=== PATIENT | male | born 1980 | race Caucasian/White ===

== ENCOUNTER 2024-02-07 09:01 | Outpatient (OUT) | payer OTHER, SELFPAY ==
--- NOTE | 2024-02-07 09:09 | ECG_ITS ---
[facility] Test Date: 2024-02-07 Pat Name: TEAGAN ACOSTA Department: Room: - Gender: Male Animal [employer]: : [id number] Requested By: Order Number: [id number] Reading MD: MARYANNE GARCIA Measurements Intervals [place] Rate: 72 P: 73 ID: [id number] QRS: 45 QRSD: 93 T: 47 QT: 371 QTc: 407 Interpretive Statements SINUS RHYTHM No previous ECG available for comparison Electronically Signed On 02-07-2024 23:03:37 EDT by MARYANNE GARCIA
[2024-02-07 09:48] LABS: Basophils Percent Auto 0.7 % (0.2-2.0); Eosinophils Absolute Auto 0.1 10^3/uL (0.0-0.7); Eosinophils Percent Auto 1.9 % (0.9-7.0); Hemoglobin 13.3 g/dL (14.0-18.0); Immature Granulocytes Abs Auto 0.01 10^3/uL (0.00-0.03); Immature Granulocytes Pct Auto 0.2 % (0.0-0.5); Lymphocytes Absolute Auto 1.1 10^3/uL (1.2-3.8); Lymphocytes Percent Auto 25.2 % (20.5-60.0); Mean Corpuscular HGB Conc 33.3 g/dL (29.9-35.2); Mean Corpuscular Volume 87.3 fL (80.0-94.0); Mean Platelet Volume 8.8 fL (9.5-13.5); Monocytes Absolute Auto 0.4 10^3/uL (0.3-0.8); Monocytes Percent Auto 9.6 % (1.7-12.0); Neutrophils Absolute Auto 2.7 10^3/uL (1.4-6.5); Neutrophils Percent Auto 62.4 % (43.0-75.0); Platelet Count 236 10^3/uL (150-450); Red Blood Count 4.58 10^6/uL (4.70-6.10); Red Cell Distribution Width 12.7 % (11.0-15.0); White Blood Count 4.3 10^3/uL (4.0-11.0)
[2024-02-07 10:26] LABS: BUN Creatinine Ratio 20.9; Calcium 8.7 mg/dL (8.5-10.1); Carbon Dioxide 27.1 mmol/L (21.0-32.0); Chloride 107 mmol/L (98-107); Estimated GFR (African America >60 (>=60); Estimated GFR (Non-African Ame >60 (>=60); Glucose 111 mg/dL (74-106); Potassium 4.1 mmol/L (3.5-5.1); Sodium 141 mmol/L (136-145)
[2024-02-07 11:01] LABS: Partial Thromboplastin Time 27.1 sec (22.3-36.2); Prothrombin Time 10.6 sec (9.0-11.6)
== END 2024-02-07 09:02 | disposition home or self-care (01) ==
PROVIDERS: Visit Provider Urology
DX: Z01.810 Encounter for preprocedural cardiovascular examination (principal); Z01.812 Encounter for preprocedural laboratory examination; N43.3 Hydrocele, unspecified
CPT/HCPCS: 80048; 85025; 85610; 85730; 93005

== ENCOUNTER 2024-02-21 11:07 | Day surgery (SDC) | payer OTHER, SELFPAY ==
[2024-02-07 09:14] VITALS: BP 130/80; PULSE 80; TEMP 36.5; O2SAT 97; BMI 47.0
[2024-02-21] VITALS (13 sets, daily range): BP systolic 124–155; BP diastolic 78–101; PULSE 69–85; TEMP 36.2–36.4; O2SAT 94–98; BMI 47.0
--- OUTSIDE RECORDS SUMMARY | 2024-02-21 11:17 | XMS_ITS | CCD ---
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 Mucous membranes moist. Normal oropharynx, posterior pharynx without lesion or exudate. Tongue normal. Neck: No cervical lymphadenopathy Lungs: Decreased breath sounds throughout with mild wheezing Cardio: Regular rate and rhythm with no murmur Mental status: Alert and oriented x3. Appropriate mood and affect. Assessment/Plan 1. Moderate asthma with acute exacerbation (J45.901: Unspecified asthma with (acute) exacerbation) Prescription for azithromycin and prednisone 60 mg daily sent to local pharmacy along with albuterol nebulizer solution and tubing. Encouraged patient to continue to use albuterol inhaler as needed along with Singulair nightly. 2. First degree burn of eyelid (T26.00XA: Burn of unspecified eyelid and periocular area, initial encounter) Discussed with patient to use Vaseline or Aquaphor healing ointment on the area. Can apply cool compresses. 3. Hypertension (I10: Essential (primary) hypertension) This is well controlled. Continue lisinopril 20 mg daily as prescribed. 4. BMI 45.0-49.9, adult (Z68.42: Body mass index [BMI] 45.0-49.9, adult) The standard range for ages 18 and older is >=18.5 and < 25 kg/m2. Your BMI today was above this range, this falls in the overweight to obese category and there are medical benefits to weight loss. We can offer counselling, referral, and/or medical support in addressing this problem. Your BMI and weight management will be followed at subsequent visits. 5. Morbid obesity (E66.01: Morbid (severe) obesity due to excess calories) See problem number 4. Patient verbalized understanding and is agreeable to plan and course of treatment. This documentation was completed by voice-activated device and software. Inaccuracies compared to the original dictation of this provider are possible although this document has been overread and corrected. Portions of this record may have been created with voice recognition artificial intelligence software, specifically [employer] / [employer] and or [employer]. Substitutions may have occurred due to the inherent limitations of voice recognition and artificial intelligence software. ATTESTATION: This note has been generated by [employer] and edited by Jabier Knutson, Quality Staff Midwife. Follow-up (more content not included)... [facility] Comment on above: Result Comment: Elec tronically Signed By: Nayely Souza PA-C\.br\Date and Time Signed: 12/19/23 21:32 EDT\.br\Electronically Co-Signed By: Jabier Knutson\.br\Date and Time Co-Signed: 12/17/23 14:58 EDT Ambulatory Visit Summaryon 0 12-17-2023 Ambulatory Visit Summary TULIO ACOSTA JR :1980 Visit Date:12/17/2023 Ambulatory Visit Instructions Your Diagnosis Moderate asthma with acute exacerbation Hypertension BMI 45.0-49.9, adult Morbid obesity Your Care Team Attending Physician - Nayely Souza PA-C Primary Care Physician - Nayely Souza PA-C This Is Your Medications List [facility] [place] Prescription (Nebulizer Tubing and Mouthpiece Kit) albuterol (albuterol 0.083% Inh Hillary 3 mL) azithromycin (azithromycin 250 mg Tab) predniSONE (predniSONE 20 mg Tab) Contact prescribing physician if questions or concerns albuterol (Albuterol (Eqv-ProAir HFA) 90 mcg/inh inhalation aerosol) lisinopril (lisinopril 20 mg Tab) montelukast (Singulair 10 mg Tab) sildenafil (Viagra 25 mg Tab) Procedures Performed lateral ankle stabilization Liang modification of the Underwood procedure, synovectomy peroneal brevis and longus tendon (09/04/2013), bilateral knee surgeries, rt little finger surgery. Discharge Vitals Temperature (Oral) 36.6 ?C Heart Rate (Peripheral) 87 Respiratory Rate 18 Blood Pressure 130/76 Height 176 cm Height 69 in Weight 147.2 kg Weight 323.84 lb BMI 47.52 What to do next Scheduled Follow-Up Appointments Sunday. 2023 12:00 PM EDT With: ELIESER VERMA, Cayetano Shelby Where: [facility] Patient Educationon 12-17-19 Patient Education Cardiovascular Managing Your Hypertension Hypertension, also called high blood pressure, is when the force of the blood pressing against the james of the arteries is too strong. Arteries are blood vessels that carry blood from your heart throughout your body. Hypertension forces the heart to work harder to pump blood and may cause the arteries to become narrow or stiff. Understanding blood pressure readings A blood pressure reading includes a higher number over a lower number: ? The first, or top, number is called the systolic pressure. It is a measure of the pressure in your arteries as your heart beats. ? The second, or bottom number, is called the diastolic pressure. It is a measure of the pressure in your arteries as the heart relaxes. For most people, a normal blood pressure is below 120/80. Your personal target blood pressure may vary depending on your medical conditions, your age, and other factors. Blood pressure is classified into four stages. Based on your blood pressure reading, your health care provider may use the following stages to determine what type of treatment you need, if any. Systolic pressure and diastolic pressure are measured in a unit called millimeters of mercury (mmHg). Normal ? Systolic pressure: below 120. ? Diastolic pressure: below 80. Elevated ? Systolic pressure: 120?129. ? Diastolic pressure: below 80. Hypertension stage 1 ? Systolic pressure: 130?139. ? Diastolic pressure: 80?89. Hypertension stage 2 ? Systolic pressure: 140 or above. ? Diastolic pressure: 90 or above. How can this condition affect me? Managing your hypertension is very important. Over time, hypertension can damage the arteries and decrease blood flow to parts of the body, including the brain, heart, and kidneys. Having untreated or uncontrolled hypertension can lead to: ? A heart attack. ? A stroke. ? A weakened blood vessel (aneurysm). ? Heart failure. ? Kidney damage. ? Eye damage. ? Memory and concentration problems. ? Vascular dementia. What actions can I take to manage this condition? Hypertension can be managed by making lifestyle changes and possibly by taking medicines. Your health care provider will help you make a plan to bring your blood pressure within a normal range. You may be referred for counseling on a healthy diet and physical activity. Nutrition ? Eat a diet that is high in fiber and potassium, and low in salt (sodium), added sugar, and fat. An example eating plan is called the DASH diet. DASH stands for Dietary Approaches to Stop Hypertension. To eat this way: ? Eat plenty of fresh fruits and vegetables. Try to fill one-half of your plate at each meal with fruits and vegetables. ? Eat whole grains, such as whole-wheat pasta, brown rice, or whole-grain bread. Fill about one-fourth of your plate with whole grains. ? Eat low-fat dairy products. ? Avoid fatty cuts of meat, processed or cured meats, and poultry with skin. Fill about one-fourth of your plate with lean proteins such as fish, chicken without skin, beans, eggs, and tofu. ? Avoid pre-made and processed foods. These tend to be higher in sodium, added sugar, and fat. ? Reduce your daily sodium intake. Many people with hypertension should eat less than 1,500 mg of sodium a day. Lifestyle ? Work with your health care provider to maintain a healthy body weight or to lose weight. Ask what an ideal weight is for you. ? Get at least 30 minutes of exercise that causes your heart to beat faster (aerobic exercise) most days of the week. Activities may include walking, swimming, or biking. ? Include exercise to strengthen your muscles (resistance exercise), such as weight lifting, as part of your weekly exercise routine. Try to do these types of exercises for 30 minutes at least 3 days a week. ? Do not use any products that contain nicotine or tobacco. These products include cigarettes, chewing tobacco, and vaping devices, such as e-cigarettes. If you need help quitting, ask your health care provider. ? Control any long-term (chronic) conditions you have, such as high cholesterol or diabetes. ? Identify your sources of stress and find ways to manage stress. This may include meditation, deep breathing, or making time for fun activities. Alcohol use ? Do not drink alcohol if: ? Your health care provider tells you not to drink. ? You are , may be , or are planning to become . ? If you drink alcohol: ? Limit how much you have to: ? 0?1 drink a day for women. ? 0?2 drinks a day for men. ? Know how much alcohol is in your drink. In the [place] one drink equals one 12 oz bottle of beer (355 mL), one 5 oz glass of wine (148 mL), or one 1? oz glass of hard liquor (44 mL). Medicines Your health care provider may prescribe medicine if lifestyle changes are not enough to get your blood pressure under control and if: ? Your systolic blood pr (more content not included)... Normal [facility] Registrationon 10-10-2023 Registration [id number] #1.00TIFF [facility] Registrationon 10-04-2023 Registration [id number] 2#1.00TIFF [facility] Physician Referralon 024 Physician Referral [id number] 3#1.00TIFF Normal [facility] US Scrotum (Contents)on 08-27 US Scrotum (Contents) Exam Date/Time: 09/04/2023 15:55 EST Reason for Exam: N43.3;Other (please specify) Report IMPRESSION: NEGATIVE TESTICLES. RIGHT EPIDIDYMIS NOT VISUALIZED. LEFT EPIDIDYMAL CYST VERSUS SPERMATOCELE. LARGE BILATERAL HYDROCELES. NEURAL SONOGRAPHY WITH COLOR FLOW AND DOPPLER. CLINICAL HISTORY: N43.3. Findings: The right testicle measures approximately 5.3 cm x 3.6 cm x 4.1 cm. The left testicle measures approximately 5.9 cm x 3.3 cm x 3.1 cm. Testicles normal in size, shape, echogenicity, color flow, Doppler. Right epididymis not visualized. Left epididymis measures 2.6 cm with 1.6 x 1.5 x 1.3 cm area of cystic change. Color-flow without anomaly. The epididymides bilaterally are unremarkable and measure on the right and 2.6 cm on the left. Large bilateral hydroceles. Report Ordering Provider: Jasmin MCKEON FINAL REPORT Dictated: 09/05/2023 3:56 pm Alonso Fry MD Signed (Electronic Signature): 09/05/2023 3:56 pm Signed by: Alonso Fry MD Transcribed by: FABIOLA Technologist: TONIA [facility] Consent for Treatmenton Consent for Treatment [id number] #1.00TIFF [facility] Family Medicine Office/Clini c Noteon 09-03-2023 Family Medicine Office/Clinic Note Chief Complaint EF pt. pt presents today with c/o rt testicular swelling x 6mo, denies pain, urinary sx's or fevers, declines all vaccs History of Present Illness The patient presents with complaints of right testicular swelling. He is accompanied by his . He has been having discomfort in the right testicle for 6 months. It does not hurt, but it is swollen. He smashed his right testicle when he was a child. Over the years this has always been larger. He is passing urine normally. He does not get up 3 to 4 times at night to urinate. He denies seeing blood in the urine. His erectile function is okay. He has used medication to help with his erectile function, which does help. He denies constipation. 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 He does not unload or lift heavy objects daily or excessively. States that it feels like he almost has 3 testicles all the time. No urethral discharge. He does remain compliant with his CPAP/BiPAP. Tolerates this well. He has a cat bite./Scratches on the right hand. He can not have a tetanus vaccine because it gives him swelling, turns black, and goes into convulsions. Review of Systems PHQ Score Initial Depression Screen Score: 0 SCORE Physical Exam Vitals & Measurements HR: 80(Peripheral) RR: 16 BP: 120/80 SpO2: 97% HT: 69 in HT: 176 cm WT: 146.4 kg WT: 322.08 lb BMI: 47.26 The patient is adequately reasonably hydrated. Accompanied by his . Normocephalic, atraumatic. Without JVD, bruits, no thyromegaly. Neck is very thick. Wearing corrective lenses. Conjunctiva clear. Pupils are symmetric. Auscultation of the lungs clear bilaterally. Heart, regular rate and rhythm. Distant. No murmur, gallop, or rub. Abdomen is morbidly obese. Hyperactive bowel sounds, nontender. Exam of the genitalia find normal circumcised phallus. The left hemiscrotum has a palpable testicle with probably some extra fluid or fullness. The right hemiscrotum is exceptionally large with a palpable testicle on the bottom, but light transilluminates throughout the fluid filled sac. It is not tender. Negative Valsalva exam. No hernias. No inguinal adenopathy. Lower extremities without edema. Warm and dry but pale. Anxious but cooperative. Fair insight. Assessment/Plan 1. Right hydrocele (N43.3: Hydrocele, unspecified) Reviewed that this appears to be a benign condition but with the huge size of the scrotum greater than 8 to 9 cm in diameter I think it would be a arthur idea to get an ultrasound to rule out any other testicular masses it is hard to see or confirm. He is agreeable results will follow reassurance is provided. Ordered: US Scrotum (Contents) 2. Swelling of the testicles (N50.89: Other specified disorders of the male genital organs) Discussed the potential need for urology consult depending on findings of ultrasound. May give consideration to surgical intervention versus watchful waiting. Ordered: US Scrotum (Contents) 3. Erectile dysfunction (N52.9: Male erectile dysfunction, unspecified) May continue with Viagra as needed 4. Hypertension (I10: Essential (primary) hypertension) The importance of the following were all reviewed with the patient: -Take Rx(s )as prescribed. There are simple Lifestyle Modifications that you can do to reduce your blood pressure. -Weight Reduction -Follow the DASH eating plan. More information about this eating plan can be found here: https://www.nhlbi.ni h.gov/health/health- topics/topics/dash -Reduce Sodium (Salt) Intake to 2000mg per day. -Use Moderation when consuming alcohol. - To improve your health we recommend increasing your level of moderate exercise to at least 2.5 hrs per week. For more information, please visit the CDC Exercise and Fitness Recommendations at www.cdc.gov/physical activity/basics/inde x.htm 5. Severe obstructive sleep apnea (G47.33: Obstructive sleep apnea (adult) (pediatric)) Patient is very compliant with CPAP and definitely benefiting from continued use 6. BiPAP (biphasic positive airway pressure) dependence (Z99.89: Dependence on other enabling machines and devices) See problem #5 7. Morbid obesity (E66.01: Morbid (severe) obesity due to excess calories) The standard range for ages 18 and older is >=18.5 and < 25 kg/m2. Your BMI today was above this range, this falls in the overweight to obese category and there are medical benefits to weight loss. We can offer counselling, referral, and/or medical support in addressing this problem. Your BMI and weight management will be followed at subsequent visits. 8. BMI 45.0-49.9, adult (Z68.42: Body mass index [BMI] 45.0-49.9, adult) See #7 Portions of this record may have been created with voice recognition artificial intelligence software, specifically [employer] / [employer] and or [employer]. Substitutions may have occurred due to the inherent limitations of voice recognition and artificial intelligence software. Follow-up With Whe (more content not included)... Normal [facility] Comment on above: Result Comment: Elec tronically Signed By: MIKE VERMA, Jasmin\.br\Date and Time Signed: 09/03/23 13:52 EST Patient Educationon 09-03-19 Patient Education Urology Hydrocele, Adult A hydrocele is a collection of fluid in the loose pouch of skin that holds the testicles (scrotum). It can occur in one or both testicles. This may happen because: ? The amount of fluid produced in the scrotum is not absorbed by the rest of the body. ? Fluid from the abdomen fills the scrotum. Normally, the testicles develop in the abdomen and then drop into the scrotum before . The tube that the testicles travel through usually closes after the testicles drop. If the tube does not close, fluid from the abdomen can fill the scrotum. This is not very common in adults. What are the causes? A hydrocele may be caused by: ? An injury to the scrotum. ? An infection. ? Decreased blood flow to the scrotum. ? Twisting of a testicle (testicular torsion). ? A defect. ? A tumor or cancer of the testicle. Sometimes, the cause is not known. What are the signs or symptoms? A hydrocele feels like a water-filled balloon. It may also feel heavy. Other symptoms include: ? Swelling of the scrotum. The swelling may decrease when you lie down. You may also notice more swelling at night than in the morning. This is called a communicating hydrocele, in which the fluid in the scrotum goes back into the abdominal cavity when the position of the scrotum changes. ? Swelling of the groin. ? Mild discomfort in the scrotum. ? Pain. This can develop if the hydrocele was caused by infection or twisting. The larger the hydrocele, the more likely you are to have pain. Swelling may also cause pain. How is this diagnosed? This condition may be diagnosed based on a physical exam and your medical history. You may also have tests, including: ? Imaging tests, such as an ultrasound. ? A transillumination test. This test takes place in a dark room where a light is placed on the skin of the scrotum. Clear liquid will not impede the light and the scrotum will be illuminated. This helps a health care provider distinguish a hydrocele from a tumor. ? Blood or urine tests. How is this treated? Most hydroceles go away on their own. If you have no discomfort or pain, your health care provider may suggest close monitoring of your condition until the condition goes away or symptoms develop. This is called watch and wait or watchful waiting. If treatment is needed, it may include: ? Treating an underlying condition. This may include taking an antibiotic medicine to treat an infection. ? Having surgery to stop fluid from collecting in the scrotum. ? Having surgery to drain the fluid. Surgery may include: ? Hydrocelectomy. For this procedure, an incision is made in the scrotum to remove the fluid. ? Needle aspiration. A needle is used to drain fluid. However, the fluid buildup will come back quickly and may lead to an infection of the scrotum. This is rarely done. Follow these instructions at home: Medicines ? Take tzjw-qtn-bkwkqvw and prescription medicines only as told by your health care provider. ? If you were prescribed an antibiotic medicine, take it as told by your health care provider. Do not stop taking the antibiotic even if you start to feel better. General instructions ? Watch the hydrocele for any changes. ? Keep all follow-up visits. This is important. Contact a health care provider if: ? You notice any changes in the hydrocele. ? The swelling in your scrotum or groin gets worse. ? The hydrocele becomes red, firm, painful, or tender to the touch. ? You have a fever. Get help right away if you: ? Develop a lot of pain or your pain becomes worse. ? Have chills. ? Have a high fever. Summary ? A hydrocele is a collection of fluid in the loose pouch of skin that holds the testicles (scrotum). ? A hydrocele can cause swelling, discomfort, and pain. ? In adults, the cause of a hydrocele may not be known. However, it is sometimes caused by an infection or the twisting of a testicle. ? Hydroceles often go away on their own. If a hydrocele causes pain, treating the underlying cause may be needed to ease the pain. This information is not intended to replace advice given to you by your health care provider. Make sure you discuss any questions you have with your health care provider. Document Revised: 03/30/2022 Document Reviewed: 03/30/2022 [employer] Patient Education ? 2022 [employer]. Scrotal Swelling Scrotal swelling is a condition in which the sac of skin that contains the testicles, blood vessels, and structures that help deliver sperm and semen (scrotum) is enlarged or swollen. This can happen on one or both sides of the scrotum. Many things can cause the scrotum to enlarge or swell, including: ? Fluid around the testicle (hydrocele). ? A weakened area in the muscles around the groin (hernia). ? An enlarged vein around the testicle. ? An injury. ? An infection. ? Certain medical treatments. ? Certain medical conditions, (more content not included)... Normal [facility] ABO/Rhon 08-15-2023 ABO/Rh Positive Invalid Interpretation Code [facility] Comment on above: Performed By: #### 1 [id number] ####[facility] [id number] [place] [address] ABO/Rh History Checkon 08-15 ABO/Rh History Check Patient discharged prior Normal [facility] Comment on above: Performed By: #### 1 [id number] ####[facility] [id number] [place] [address] ABSCon 08-15-2023 ABSC Gel Interp Negative Normal [facility] Comment on above: Performed By: #### 1 [id number], [id number], [id number] ####[facility] [id number] [place] [address] Auto Diffon 08-15-2023 Basophils/100 WBC (Bld) 1.2 % Normal 0.0-2.0 [facility] Comment on above: Order Comment: Order Added by Discern Expert. Performed By: #### 2 [id number], [id number], [id number], [id number], [id number], [id number] #### [facility] [address] [place] [address] Basophils/Leukocytes Auto (Bld) [Pure # fraction] 0.1 E9/L Normal 0.0-0.2 [facility] Comment on above: Order Comment: Order Added by Discern Expert. Performed By: #### 2 [id number], [id number], [id number], [id number], [id number], [id number], [id number] #### [facility] [address] [place] [address] Eosinophils/100 WBC (Bld) 2.9 % Normal 0.0-8.0 [facility] Comment on above: Order Comment: Order Added by Discern Expert. Performed By: #### 2 [id number], [id number], [id number], [id number], 8508535, [id number], [id number], [id number] #### [facility] [address] [place] [address] Eosinophils/Leukocyte s Auto (Bld) [Pure # fraction] 0.1 E9/L Normal 0.0-0.5 [facility] Comment on above: Order Comment: Order Added by Discern Expert. Performed By: #### 2 [id number], [id number], [id number], 6979093, [id number], [id number], [id number], [id number], [id number] #### [facility] [address] [place] [address] Lymphocytes/100 WBC (Bld) 26.5 % Normal 14.0-50.0 [facility] Comment on above: Order Comment: Order Added by Discern Expert. Performed By: #### 2 [id number], [id number], [id number], [id number], 5797548, 8943450, 1662519, [id number], [id number] #### [facility] [address] [place] [address] Lymphocytes/Leukocyte s Auto (Bld) [Pure # fraction] 1.2 E9/L Normal 1.0-4.0 [facility] Comment on above: Order Comment: Order Added by Discern Expert. Performed By: #### 2 [id number], [id number], 1549125, 4794310, 3904023, 9398421, 4434577, [id number], [id number] #### [facility] [address] [place] [address] Monocytes/100 WBC (Bld) 10.5 % Normal 4.0-14.0 [facility] Comment on above: Order Comment: Order Added by Discern Expert. Performed By: #### 2 117265, [id number], 8340317, 0649875, 4700485, 6372612, 5566686, 33257652, 8253099 #### [facility] [address] [place] [address] Monocytes/Leukocytes Auto (Bld) [Pure # fraction] 0.5 E9/L Normal 0.2-1.0 [facility] Comment on above: Order Comment: Order Added by Discern Expert. Performed By: #### 2 597791, 62910726, 6650222, 4428636, 6775318, 4951027, 8499711, 91488246, 4677072 #### [facility] [address] [place] [address] Neutrophils/100 WBC (Bld) 58.9 % Normal 36.0-75.0 [facility] Comment on above: Order Comment: Order Added by Discern Expert. Performed By: #### 2 331304, 88418770, 1004976, 1317424, 3178030, 1210246, 9501925, 57868046, 4633546 #### [facility] [address] [place] [address] Neutrophils/Leukocyte s Auto (Bld) [Pure # fraction] 2.7 E9/L Normal 2.0-7.5 [facility] Comment on above: Order Comment: Order Added by Discern Expert. Performed By: #### 2 839342, 53352584, 4796322, 5591027, 7070484, 7902420, 8106000, 26388313, 7375963 #### [facility] [address] [place] [address] BLOOD BANKOrdered By: Susie Medina on 08-15-2023 ABO/Rh Interp Positive Invalid Interpretation Code [facility] BB Subsection ABSC Gel Interp Negative (08/15/23 9:20 AM) Normal [facility] BB Subsection BMPon 08-15-2023 Anion gap [Moles/Vol] 11 mmol/L Normal 6-16 [facility] Comment on above: Performed By: #### 2 289953, 52402148, 7591335, 2154133, 4887662, 9578852, 2806241, 80661710, 7638302 ####[facility] [address]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 your experience with us by completing your survey. We appreciate your feedback and thank you for choosing us for your care. Normal [facility] CBC w/Indiceson 07-13-2023 Erythrocyte distribution width (RBC) [Ratio] 13.3 % Normal 10.9-14.2 [facility] Comment on above: Performed By: #### 1 [id number], 7422460, 3671288, 20628595, 4386574 ####[facility] [address] [place] [address] Hematocrit (Bld) [Volume fraction] 38.6 % Normal 37.7-49.0 [facility] Comment on above: Performed By: #### 1 5664916, 9522136, 4025266, 54745098, 8415985 ####[facility] [address] [place] [address] Hemoglobin (Bld) [Mass/Vol] 13.3 g/dL Low 13.5-17.5 [facility] Comment on above: Performed By: #### 1 [id number], 0834139, 3933407, 33196443, 8496610 ####[facility] [address] [place] [address] MCH (RBC) [Entitic mass] 29.6 pg Normal 27.0-34.0 [facility] Comment on above: Performed By: #### 1 9931502, 5226856, 4819930, 56209293, 8519045 ####[address] [place] [address] MCHC (RBC) [Mass/Vol] 34.4 g/dL Normal 31.4-36.0 [facility] Comment on above: Performed By: #### 1 9399146, 0966063, 2727857, 21301525, 3812586 ####[address] [address] MCV (RBC) [Entitic vol] 86.0 fL Normal 80.0-100.0 [facility] Comment on above: Performed By: #### 1 2051685, 8122772, 4126312, 99496243, 6731712 ####[address] [address] Platelet mean volume (Bld) [Entitic vol] 6.4 fL Normal 6.4-10.8 [facility] Comment on above: Performed By: #### 1 5573359, 1122298, 9890568, 47007428, 5259400 ####[address] [address] Platelets (Bld) [#/Vol] 260.0 E9/L Normal 150.0-500.0 [facility] Comment on above: Performed By: #### 1 6490834, 3859751, 0103992, 93256948, 2929828 ####[address] [address] RBC (Bld) [#/Vol] 4.5 E12/L Normal 4.3-5.9 [facility] Comment on above: Performed By: #### 1 6963789, 2869351, 3316153, 73571812, 2626048 ####[address] [address] WBC corrected for nucl RBC Auto (Bld) [#/Vol] 5.0 E9/L Normal 4.0-11.0 [facility] Comment on above: Performed By: #### 1 8695798, 2103324, 5245161, 58277919, 5462707 ####[facility] [address] [place] [address] CHEMISTRYOrdered By: SYSTEM SYSTEM on 07-13-2023 Albumin [Mass/Vol] 3.9 g/dL Normal 3.3 - 5.0 gm/dL [facility] Albumin/Globulin [Mass ratio] 1.2 {ratio} Normal 1.1 - 2.2 [facility] ALP [Catalytic activity/Vol] 56 [iU]/d Normal 21 - 98 Int._Unit/L [facility] ALT No additional P-5'-P [Catalytic activity/Vol] 21 [iU]/d Normal 6 - 46 Int._Unit/L [facility] Anion gap [Moles/Vol] 13 mmol/L Normal 6 - 16 mEq/L [facility] AST [Catalytic activity/Vol] 17 [iU]/d Normal 5 - 43 Int._Unit/L [facility] Bilirubin [Mass/Vol] 1.6 mg/dL High 0.0 - 1 .1 mg/dL [facility] Calcium [Mass/Vol] 9.1 mg/dL Normal 8.9 - 11. 1 mg/dL [facility] Chloride [Moles/Vol] 103 mmol/L Normal 101 - 1 11 mmol/L [facility] CO2 [Moles/Vol] 26 mmol/L Normal 21 - 31 mmol/L [facility] Creatinine [Mass/Vol] 0.9 mg/dL Normal 0.5 - 1.3 mg/dL [facility] CRP [Mass/Vol] 1.4 mg/dL Normal <=1.9mg/dL [facility] ol GFR/1.73 sq M.predicted among non-blacks MDRD (S/P/Bld) [Vol rate/Area] 109 mL/min/1.73 m2 Normal >=59mL/min/1 .73 m2 [facility] Comment on above: Interpretive Data: C hronic kidney disease could be indicated at eGFR's of less than 60 mL/min/1.73m2. Kidney failure is indicated at less than 15 mL/min/1.73m2. Globulin (S) [Mass/Vol] 3.2 g/dL Normal 1.4 - 4.0 gm/dL [facility] Remisol Glucose [Mass/Vol] 89 mg/dL Normal 55 - 199 mg/dL [facility] Comment on above: Interpretive Data: I f this glucose result represents a fasting glucose, interpretation should refer to the following reference range: 55-99 mg/dL Potassium [Moles/Vol] 4.1 mmol/L Normal 3.5 - 5.3 mmol/L [facility] Remisol Protein [Mass/Vol] 7.1 g/dL Normal 6.0 - 7.8 gm/dL [facility]isol Sodium [Moles/Vol] 138 mmol/L Normal 135 - 145 mmol/L [facility]isol Urea nitrogen [Mass/Vol] 18 mg/dL Normal 5 - 21 mg/dL [facility] Remisol Urea nitrogen/Creatinine [Mass ratio] 20 mg/mg Normal 10 - 20 [facility] Remisol CMPon 07-13-2023 Albumin [Mass/Vol] 3.9 g/dL Normal 3.3-5.0 [facility] Comment on above: Performed By: #### 1 [id number], 7998041, 2242589, 27113226, 3852461 ####[facility] [address] [place] [address] Albumin/Globulin (S) [Mass conc ratio] 1.2 Normal 1.1-2.2 [facility] Comment on above: Performed By: #### 1 7376627, 3631546, 6675299, 88911592, 0467316 ####[facility] [address] [place] [address] ALP [Catalytic activity/Vol] 56 Int._Unit/L Normal 21-98 [facility] Comment on above: Performed By: #### 1 4543275, 0074781, 6230120, 54543867, 6879729 ####[facility] [address] [place] [address] ALT No additional P-5'-P [Catalytic activity/Vol] 21 Int._Unit/L Normal 6-46 [facility] Comment on above: Performed By: #### 1 1774451, 8996923, 0943415, 74434560, 8991853 ####[facility] [address] [place] [address] Anion gap [Moles/Vol] 13 mmol/L Normal 6-16 [facility] Comment on above: Performed By: #### 1 9013520, 1935278, 1423031, 53716644, 8232957 ####[facility] [address] [place] [address] AST [Catalytic activity/Vol] 17 Int._Unit/L Normal 5-43 [facility] Comment on above: Performed By: #### 1 1582239, 4884446, 4321831, 86567096, 6789056 ####[address] [place] [address] Bilirubin [Mass/Vol] 1.6 mg/dL High 0.0-1.1 [facility] Comment on above: Performed By: #### 1 9067383, 8937459, 7511154, 63316834, 9082078 ####[facility] [address] [place] [address] Calcium [Mass/Vol] 9.1 mg/dL Normal 8.9-11.1 [facility] Comment on above: Performed By: #### 1 9583421, 1322622, 6508990, 85367655, 3548599 ####[address] [place] [address] Chloride [Moles/Vol] 103 mmol/L Normal 101-111 [facility] Comment on above: Performed By: #### 1 6221065, 0532259, 6694557, 26148098, 4307433 ####[facility] [address] [place] [address] CO2 [Moles/Vol] 26 mmol/L Normal 21-31 [facility] Comment on above: Performed By: #### 1 3143883, 5237506, 5152345, 85855226, 6178299 ####[facility] [address] [place] [address] Creatinine [Mass/Vol] 0.9 mg/dL Normal 0.5-1.3 [facility] Comment on above: Performed By: #### 1 7936718, 3369632, 8718638, 23104637, 4151318 ####[facility] [address] [place] [address] Globulin (S) [Mass/Vol] 3.2 g/dL Normal 1.4-4.0 [facility] Comment on above: Performed By: #### 1 1342197, 7873338, 1519218, 31728732, 8851378 ####[facility] [address] [place] [address] Glucose [Mass/Vol] 89 mg/dL Normal 55-199 [facility] Comment on above: Result Comment: If t his glucose result represents a fasting glucose, interpretation should refer to the following reference range: 55-99 mg/dL Performed By: #### 1 0941301, 9043907, 9149513, 54407767, 2233402 ####[facility] [address] [place] [address] Potassium [Moles/Vol] 4.1 mmol/L Normal 3.5-5.3 [facility] Comment on above: Performed By: #### 1 5144517, 9044379, 0049623, 18540686, 8543758 ####[facility] [address] [place] [address] Protein [Mass/Vol] 7.1 g/dL Normal 6.0-7.8 [facility] Comment on above: Performed By: #### 1 8304686, 3528243, 4665701, 92975711, 2675338 ####[facility] [address] [place] [address] Sodium [Moles/Vol] 138 mmol/L Normal 135-145 [facility] Comment on above: Performed By: #### 1 4751501, 5990860, 7023307, 21283732, 2458087 ####[facility] [address] [place] [address] Urea nitrogen [Mass/Vol] 18 mg/dL Normal 5-21 [facility] Comment on above: Performed By: #### 1 2103184, 8658762, 1743683, 89343216, 6832546 ####[facility] [address] [place] [address] Urea nitrogen/Creatinine [Mass ratio] 20 No Units Normal 10-20 [facility] Comment on above: Performed By: #### 1 2996816, 8685780, 7081949, 39775991, 1384364 ####[facility] [address] [place] [address] CRPon 07-13-2023 CRP [Mass/Vol] 1.4 mg/dL Normal <=1.9 [facility] Comment on above: Performed By: #### 1 4227630, 0446311, 9217324, 64975102, 6915855 ####[facility] [address] [place] [address] Consent for Treatmenton 06-27 Consent for Treatment [id number] #1.00TIFF Normal [facility] HEMATOLOGYOrdered By: Aviva Hathaway on 07-13-2023 Erythrocyte distribution width (RBC) [Ratio] 13.3 % Normal 10.9 - 14.2 % FT [facility] ESR (Bld) [Velocity] 11 mm/h Normal 0 - 19 mm/hr [facility] Hematocrit (Bld) [Volume fraction] 38.6 % Normal 37.7 - 49.0 % FT [facility] Hemoglobin (Bld) [Mass/Vol] 13.3 g/dL Low 13.5 - 17.5 gm/dL [facility] MCH (RBC) [Entitic mass] 29.6 pg Normal 27.0 - 34.0 pg FT [facility] MCHC (RBC) [Mass/Vol] 34.4 g/dL Normal 31.4 - 36.0 gm/dL [facility] MCV (RBC) [Entitic vol] 86.0 fL Normal 80.0 - 100.0 fL [facility] HemeAutoSS Platelet mean volume (Bld) [Entitic vol] 6.4 fL Normal 6.4 - 10.8 fL [facility] HemeAutoSS Platelets (Bld) [#/Vol] 260.0 E9/L Normal 150.0 - 500.0 E9/L [facility] HemeAutoSS RBC (Bld) [#/Vol] 4.5 E12/L Normal 4.3 - 5.9 E12/L [facility] HemeAutoSS WBC corrected for nucl RBC Auto (Bld) [#/Vol] 5.0 E9/L Normal 4.0 - 11.0 E9/L [facility] HemeAutoSS Provider Letteron 07-13-2023 Provider Letter July 13, 2023 TULIO DAVE [address] [place] [address] : 1980 To Whom It May Concern, Please excuse above patient from work. Date of Illness: From: 07/13/2023 To: 07/13/2023 May Return to Work On: 07/14/2023 Restrictions: _ Comments: Please also excuse patient from work on 07/09/2023 Sincerely, Lorenzo Pulido MD [facility] Normal [facility] Sed Rate Automatedon 023 ESR (Bld) [Velocity] 11 mm/h Normal 0-19 [facility] Comment on above: Performed By: #### 1 [id number], 1778208, 5646782, 85217463, 6487207 ####[facility] [address] [place] [address] eGFRon 07-13-2023 GFR/1.73 sq M.predicted among non-blacks MDRD (S/P/Bld) [Vol rate/Area] 109 mL/min/1.73 m2 Normal >=59 [facility] Comment on above: Order Comment: Order added by Discern Expert. Result Comment: Manager Commission colleen kidney disease could be indicated at eGFR's of less than 60 mL/min/1.73m2. Kidney failure is indicated at less than 15 mL/min/1.73m2. Performed By: #### 1 9039827, 0542531, 3436307, 10483922, 3790094 ####[facility] [address] [place] [address] Consenton 06-20-2023 Consent [id number] 0#1.00TIFF Normal [facility] Workers' Comp Officeon 06-20 Workers' Comp Office [id number] 6#1.00TIFF Normal [facility] Workers' Comp Office [id number] 5#1.00TIFF Normal [facility] Workers' Comp Office Patient: TULIO ACOSTA JR Age: 42 years Sex: Male : 1980 Associated Diagnoses: None Author: Gena PIMENTEL CNP Chief Complaint 06/20/2023 8:34 EDT pt was hit in the head with an outrigger pad for a roman, treated at Urgent Care in [place] and 9 eliazar to top R side of his head, no signs of infection, no c/o History of Present Illness DOI: 06/06/23 Employer: [employer]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 He went to Urgent Care and required 9 eliazar to his right upper forehead. Denies any loss of consciousness. States he was off work 2 days then returned to work full duty. 06/20/23 f/u Presents today for staple removal. Denies any problems with laceration. Denies any pain of laceration. Denies any headaches. States he never required any OTC pain relievers. Review of Systems Constitutional: Negative. Musculoskeletal: Negative. Integumentary: scalp laceration. Neurologic: Negative. Psychiatric: Negative. Health Status Allergies: Allergic Reactions (Selected) Severe Tetanus toxoid- Apnea and swelling. Moderate Symbicort- Throat irritation., Allergies (2) Active Reaction tetanus toxoid Apnea Symbicort Throat irritation Current medications: (Selected) Prescriptions Prescribed Albuterol (Eqv-ProAir HFA) 90 mcg/inh inhalation aerosol: 2 puff(s), Inhalation, q6hr, 1 EA, [id number], cm, 02/26/23 15:01:00 EDT, Height/Length Dosing, 143.7, kg, 02/26/23 15:01:00 EDT, Weight Dosing Nebulizer Tubing and Mouthpiece Kit: Nebulizer Tubing and Mouthpiece Kit, See Instructions, 1 kit(s), 0, Nebulizer Tubing and Mouthpiece Kit, [facility], Supply, 175, cm, 11/07/21 7:11:00 EDT, Height/Length Dosing, 148, kg, 11/07/21 7:11:00 EDT, Weight Dosing Singulair 10 mg Tab: 10 mg = 1 tab(s), Oral, qPM, # 90 tab(s), Refills(s) 1, [id number], 176, cm, 02/26/23 15:01:00 EDT, Height/Length Dosing, 143.7, kg, 02/26/23 15:01:00 EDT, Weight Dosing Viagra 25 mg Tab: 25 mg = 1 tab(s), Oral, Daily, PRN for erectile dysfunction, # 6 tab(s), Refills(s) 0, Pharmacy: [facility], 175, cm, 10/25/21 7:04:00 EST, Height/Length Dosing, 147.4, kg, 10/25/21 7:04:00 EST, Weight Dosing lisinopril 20 mg Tab: 20 mg = 1 tab(s), Oral, Daily, # 90 tab(s), Refills(s) 1, [id number], 176, cm, 02/26/23 15:01:00 EDT, Height/Length Dosing, 143.7, kg, 02/26/23 15:01:00 EDT, Weight Dosing, Home Medications (5) Active Albuterol (Eqv-ProAir HFA) 90 mcg/inh inhalation aerosol 2 puff(s), Inhalation, q6hr lisinopril 20 mg Tab 20 mg = 1 tab(s), Oral, Daily Nebulizer Tubing and Mouthpiece Kit See Instructions Singulair 10 mg Tab 10 mg = 1 tab(s), Oral, qPM Viagra 25 mg Tab 25 mg = 1 tab(s), PRN, Oral, Daily Problem list: Active Problems (13) Ankle instability BiPAP (biphasic positive airway pressure) dependence BMI 45.0-49.9, adult epislepsy Erectile dysfunction Family history of diabetes mellitus Hypertension Moderate asthma with acute exacerbation Morbid obesity Obesity Personal history of COVID-19 Severe obstructive sleep apnea Umbilical hernia Histories Past Medical History: Active epislepsy Ankle instability (4846633) Comments: 08/29/2013 EST 16:46 LATRICE Edward RN, Yamel left Resolved hypokalemia: Resolved. chronic edema to feet: Resolved. Procedure history: lateral ankle stabilization Liang modification of the Underwood procedure, synovectomy peroneal brevis and longus tendon on 09/04/2013 at 33 Years. Comments: 09/05/2013 18:06 LATRICE Centeno RN, Melia Barht application of below-knee posterior splint bilateral knee surgeries. rt little finger surgery. Physical Examination Vital Signs (last 24 hrs) Last Charted Heart Rate Apical 80 bpm (JUN 20 08:34) SBP 138 mmHg (JUN 20 08:34) DBP 84 mmHg (JUN 20 08:34) General: Alert and oriented, No acute distress. Integumentary: Scalp laceration to right upper forehead edges well approximated, no scabbing, clean and dry. There are no s/s of infection. There was some difficulty removing the 9 eliazar, pt tolerated procedure well. Skin was cleansed with betadine, applied antibiotic ointment and covered with large bandaid. . Neurologic: Alert, Oriented. Psychiatric: Cooperative, Appropriate mood & affect. Impression and Plan Diagnosis Laceration without foreign body of scalp, initial encounter ([id number] S01.01XA, Working, Medical). Course: Improving. Orders Total time: 25 minutes This includes time spent with the patient during the visit as well as time spent before and after the visit reviewing the chart, documenting the encounter, making phone calls, reviewing studies. . Professional Services 1. Reviewed records 2. [place] removed - 3. Instructed in s/s infection and to report same to (more content not included)... Normal [facility] Patient Eval Forms Officeon 04-26-2023 Patient Eval Forms Office [id number] 2#1.00CD:127 [facility] Prescriptions/Work Noteson 0 04-26-2023 Prescriptions/Work Notes [id number] 4#1.00CD:127 [facility] Consent for Treatmenton 03-29 Consent for Treatment [id number] #1.00CD:127 [facility] Consenton 04-23-2023 Consent [id number] 2#1.00CD:127 [facility] In office Testingon 04-23-20 23 In office Testing [id number] #1.00CD:127 [facility] Registrationon 04-23-2023 Registration [id number] 4#1.00CD:127 [facility] Family Medicine Office/Clini c Noteon 03-07-2023 Family Medicine Office/Clinic Note Chief Complaint Check BP and med and discuss CPAP machine History of Present Illness 42-year-old male who presents to the office with his and young child. Previously used to see Alyse Roblero CNP here in office, but she is no longer working here. The patient has concerns regarding his blood pressure check, medication refill as well as wants to discuss his BiPAP machine for his obstructive sleep apnea. The patient is requesting refills for their lisinopril medication, which he takes regularly. He does not check his blood pressure but is currently out of his medication supply. In addition to lisinopril, he takes Singulair for allergies and deny using it in combination with other xigr-vdy-plswqvq medications like Claritin or Zyrtec. He does not need a refill for Viagra at this time for his ED. He uses the Symbicort inhaler as needed and noticed that his BiPAP machine does not feel as strong as it used to. He experiences tiredness and has had difficulties with sleep since his original sleep study, which was conducted almost 2 years ago. He attempted to contact the place where they obtained the machine but were informed that they needed a new prescription from their doctor to submit to the insurance for a replacement. The patient had their original sleep study done in [place]. Since the beginning of January, his sleep duration has decreased from an average of seven to eight hours to about six hours. He is not receiving any readings from his machine, and despite the device indicating that his sleep quality is good, the patient feels that it is not working properly, and he is having difficulty getting up in the morning due to difficulty sleeping. Patient has no other questions or concerns at this time. Review of Systems PHQ Score Initial Depression Screen Score: 0 Negative unless stated in HPI. Physical Exam Vitals & Measurements HR: 71(Peripheral) BP: 128/80 SpO2: 96% HT: 69 in HT: 176 cm WT: 143.7 kg WT: 316.14 lb BMI: 46.39 General: morbidly obese male, well hydrated in no acute distress Eyes: EOMI, conjunctiva and sclera are clear Ears: No deformity or lesion of external ear. Canals canals clear with no erythema or edema. TMs pearly blanchard with no sign of perforation bilaterally. Hearing grossly normal and conversational to speech Nose: no deformity, discharge, inflammation or lesions Mouth: Mucous membranes moist with non-erythematous or edematous oropharynx and posterior pharynx. Tongue normal and free of lesions. Neck: supple, trachea is midline with no masses or lymphadenopathy. Thyroid is without nodules or tenderness Lungs: Normal respiratory effort and clear to auscultation Cardio: regular rate and rhythm, no murmur or rub Musculoskeletal: No deformity or scoliosis noted. Normal range of motion. Joints normal. No erythema, edema, effusion, or ecchymosis Extremity: No clubbing, cyanosis, edema, or deformity, with normal ROM in both upper and lower bilateral extremities Neurologic: Grossly normal Skin: No rashes, ulcerations, or suspicious lesions on exposed skin Mental Status: Alert and oriented x3. Normal mood and affect Assessment/Plan 1. Hypertension (I10: Essential (primary) hypertension) Continue lisinopril 20 mg daily. Refill sent to patient for 90-day supply with one refill to local pharmacy. The importance of the following were all reviewed with the patient: -Take medications as prescribed. There are simple Lifestyle Modifications that you can do to reduce your blood pressure. -Weight Reduction -Follow the DASH eating plan. More information about this eating plan can be found here: https://www.nhlbi. h.gov/health/health- topics/topics/dash -Reduce Sodium (Salt) Intake to 2000mg per day. -Use Moderation when consuming alcohol. - To improve your health we recommend increasing your level of moderate exercise to at least 2.5 hrs per week. For more information, please visit the CDC Exercise and Fitness Recommendations at www.cdc.gov/physical activity/basics/inde x.htm 2. Severe obstructive sleep apnea (G47.33: Obstructive sleep apnea (adult) (pediatric)) Discussed with patient to contact sleep study clinic regarding his BiPAP machine not working and to see if he can get a new one if I need to prescribe one I can. Advised titration sleep study may need to be done as settings sometimes need to be adjusted. 3. BiPAP (biphasic positive airway pressure) dependence (Z99.89: Dependence on other enabling machines and devices) Discussed with patient to contact sleep study clinic regarding his BiPAP machine not working and to see if he can get a new one if I need to prescribe one I can. Advised titration sleep study may need to be done as settings sometimes need to be adjusted. 4. Erectile dysfunction (N52.9: Male erectile dysfunction, unspecified) Continue Viagra 25 mg daily. 5. Morbid obesity (E66.01: Morbid (severe) obesity due to excess calories) The standard range for ages 18 and older is >=18.5 and < 25 k (more content not included)... Normal [facility] Comment on above: Result Comment: Elec tronically Signed By: Nayely Souza PA-C\.br\Date and Time Signed: 03/07/23 22:02 EDT\.br\Electronically Co-Signed By: Kimberly Moffett\.br\Date and Time Co-Signed: 02/26/23 20:53 EDT Patient Educationon 03-07-20 Patient Education Cardiovascular Managing Your Hypertension Hypertension, also called high blood pressure, is when the force of the blood pressing against the james of the arteries is too strong. Arteries are blood vessels that carry blood from your heart throughout your body. Hypertension forces the heart to work harder to pump blood and may cause the arteries to become narrow or stiff. Understanding blood pressure readings A blood pressure reading includes a higher number over a lower number: ? The first, or top, number is called the systolic pressure. It is a measure of the pressure in your arteries as your heart beats. ? The second, or bottom number, is called the diastolic pressure. It is a measure of the pressure in your arteries as the heart relaxes. For most people, a normal blood pressure is below 120/80. Your personal target blood pressure may vary depending on your medical conditions, your age, and other factors. Blood pressure is classified into four stages. Based on your blood pressure reading, your health care provider may use the following stages to determine what type of treatment you need, if any. Systolic pressure and diastolic pressure are measured in a unit called millimeters of mercury (mmHg). Normal ? Systolic pressure: below 120. ? Diastolic pressure: below 80. Elevated ? Systolic pressure: 120?129. ? Diastolic pressure: below 80. Hypertension stage 1 ? Systolic pressure: 130?139. ? Diastolic pressure: 80?89. Hypertension stage 2 ? Systolic pressure: 140 or above. ? Diastolic pressure: 90 or above. How can this condition affect me? Managing your hypertension is very important. Over time, hypertension can damage the arteries and decrease blood flow to parts of the body, including the brain, heart, and kidneys. Having untreated or uncontrolled hypertension can lead to: ? A heart attack. ? A stroke. ? A weakened blood vessel (aneurysm). ? Heart failure. ? Kidney damage. ? Eye damage. ? Memory and concentration problems. ? Vascular dementia. What actions can I take to manage this condition? Hypertension can be managed by making lifestyle changes and possibly by taking medicines. Your health care provider will help you make a plan to bring your blood pressure within a normal range. You may be referred for counseling on a healthy diet and physical activity. Nutrition ? Eat a diet that is high in fiber and potassium, and low in salt (sodium), added sugar, and fat. An example eating plan is called the DASH diet. DASH stands for Dietary Approaches to Stop Hypertension. To eat this way: ? Eat plenty of fresh fruits and vegetables. Try to fill one-half of your plate at each meal with fruits and vegetables. ? Eat whole grains, such as whole-wheat pasta, brown rice, or whole-grain bread. Fill about one-fourth of your plate with whole grains. ? Eat low-fat dairy products. ? Avoid fatty cuts of meat, processed or cured meats, and poultry with skin. Fill about one-fourth of your plate with lean proteins such as fish, chicken without skin, beans, eggs, and tofu. ? Avoid pre-made and processed foods. These tend to be higher in sodium, added sugar, and fat. ? Reduce your daily sodium intake. Many people with hypertension should eat less than 1,500 mg of sodium a day. Lifestyle ? Work with your health care provider to maintain a healthy body weight or to lose weight. Ask what an ideal weight is for you. ? Get at least 30 minutes of exercise that causes your heart to beat faster (aerobic exercise) most days of the week. Activities may include walking, swimming, or biking. ? Include exercise to strengthen your muscles (resistance exercise), such as weight lifting, as part of your weekly exercise routine. Try to do these types of exercises for 30 minutes at least 3 days a week. ? Do not use any products that contain nicotine or tobacco. These products include cigarettes, chewing tobacco, and vaping devices, such as e-cigarettes. If you need help quitting, ask your health care provider. ? Control any long-term (chronic) conditions you have, such as high cholesterol or diabetes. ? Identify your sources of stress and find ways to manage stress. This may include meditation, deep breathing, or making time for fun activities. Alcohol use ? Do not drink alcohol if: ? Your health care provider tells you not to drink. ? You are , may be , or are planning to become . ? If you drink alcohol: ? Limit how much you have to: ? 0?1 drink a day for women. ? 0?2 drinks a day for men. ? Know how much alcohol is in your drink. In the [place] one drink equals one 12 oz bottle of beer (355 mL), one 5 oz glass of wine (148 mL), or one 1? oz glass of hard liquor (44 mL). Medicines Your health care provider may prescribe medicine if lifestyle changes are not enough to get your blood pressure under control and if: ? Your systolic blood pr (more content not included)... Normal [facility] Ambulatory Visit Summaryon 0 02-26-2023 Ambulatory Visit Summary TULIO ACOSTA JR :1980 Visit Date:02/26/2023 Ambulatory Visit Instructions Your Diagnosis Hypertension Severe obstructive sleep apnea BiPAP (biphasic positive airway pressure) dependence Erectile dysfunction Morbid obesity BMI 45.0-49.9, adult Your Care Team Attending Physician - Nayely Souza PA-C Primary Care Physician - Nayely Souza PA-C This Is Your Medications List albuterol (Albuterol (Eqv-ProAir HFA) 90 mcg/inh inhalation aerosol) lisinopril (lisinopril 20 mg Tab) montelukast (Singulair 10 mg Tab) Contact prescribing physician if questions or concerns Misc Prescription (Nebulizer Tubing and Mouthpiece Kit) sildenafil (Viagra 25 mg Tab) Procedures Performed lateral ankle stabilization Liang modification of the Underwood procedure, synovectomy peroneal brevis and longus tendon (09/04/2013), bilateral knee surgeries, rt little finger surgery. Discharge Vitals Heart Rate (Peripheral) 71 Blood Pressure 128/80 Height 176 cm Height 69 in Weight 143.7 kg Weight 316.14 lb BMI 46.39 What to do next You Need to Schedule the Following Appointments Follow Up with Nayely Souza PA-C When: Only if needed Where: [address] [place] [id number] [phone] Medications What How Much When Why Instructions New albuterol (Albuterol (Eqv-ProAir HFA) 90 mcg/ inh inhalation aerosol) 2 Puffs Inhalation Every 6 hours Refills: 2 Pickup at [facility]/pharmacy #[id number] Changed lisinopril (lisinopril 20 mg Tab) 1 Tablets By Mouth Every day Pickup at [facility]/pharmacy #[id number] Unchanged montelukast (Singulair 10 mg Tab) 1 Tablets By Mouth Once a day (in the evening) Pickup at [facility]/pharmacy #[id number] Unchanged Misc Prescription (Nebulizer Tubing and Mouthpiece Kit) See instructions Moderate asthma with acute exacerbation Nebulizer Tubing and Mouthpiece Kit Contact prescribing physician if questions or concerns Unchanged sildenafil (Viagra 25 mg Tab) 1 Tablets By Mouth Every day as needed for for erectile dysfunction Contact prescribing physician if questions or concerns Pharmacy Information [id number]: [address] [place], [place] [phone] Allergies tetanus toxoid (Apnea, Swelling) Symbicort (Throat irritation) Problems Ongoing - Any problem that you are currently receiving treatment for. Ankle instability BiPAP (biphasic positive airway pressure) dependence BMI 45.0-49.9, adult epislepsy Erectile dysfunction Family history of diabetes mellitus Hypertension Moderate asthma with acute exacerbation Morbid obesity Obesity Personal history of COVID-19 Severe obstructive sleep apnea Umbilical hernia Historical - Any problem that you are no longer receiving treatment for. chronic edema to feet hypokalemia Normal [facility] BMPon 09-07-2022 Anion gap [Moles/Vol] 13 mmol/L 9 - 17 mmol/L [facility] Calcium [Mass/Vol] 9.7 mg/dL 8.6 - 10. 4 mg/dL [facility] Chloride [Moles/Vol] 98 mmol/L 98 - 10 7 mmol/L [facility] CO2 [Moles/Vol] 24 mmol/L 20 - 31 mmol/L [facility] Creatinine [Mass/Vol] 0.79 mg/dL 0.70 - 1.20 mg/dL [facility] GFR/1.73 sq M.predicted MDRD (S/P/Bld) [Vol rate/Area] - PINF [facility] Comment on above: Effective May 29, 2022 These results are not intended for use in patients <18 years of age. eGFR results are calculated without a race factor using the 2020 CKD-EPI equation. Careful clinical correlation is recommended, particularly when comparing to results calculated using previous equations. The CKD-EPI equation is less accurate in patients with extremes of muscle mass, extra-renal metabolism of creatine, excessive creatine ingestion, or following therapy that affects renal tubular secretion. Glucose [Mass/Vol] 126 mg/dL High 70 - 99 mg/dL [facility] Potassium [Moles/Vol] 4.2 mmol/L 3.7 - 5.3 mmol/L [facility] Sodium [Moles/Vol] 135 mmol/L 135 - 144 mmol/L [facility] Urea nitrogen (BldV) [Mass/Vol] 16 mg/dL 6 - 20 mg/dL [facility] Urea nitrogen/Creatinine (Bld) [Mass ratio] 20 9 - 20 [facility] Basic Metabolic Profon 09-07 Anion gap [Moles/Vol] 13 mmol/L Normal 9-17 [facility] Comment on above: Performed By: #### C DP, LIVP, LIP, LACTIC, BMP #### [facility] [address] [place], [place] [id number] Data Analytics Analyst: Darryl Miller MD BUN/CRE Ratio 20 Normal 9-20 [facility] Comment on above: Performed By: #### C DP, LIVP, LIP, LACTIC, BMP #### [facility] [address] [place], [place] [id number] Data Analytics Analyst: Darryl Miller MD Calcium [Mass/Vol] 9.7 mg/dL Normal 8.6-10.4 [facility] Comment on above: Performed By: #### C DP, LIVP, LIP, LACTIC, BMP #### [facility] [address] [place], [place] [id number] Data Analytics Analyst: Darryl Miller MD Chloride [Moles/Vol] 98 mmol/L Normal 98-107 [facility] Comment on above: Performed By: #### C DP, LIVP, LIP, LACTIC, BMP #### [facility] [address] [place], [place] [id number] Data Analytics Analyst: Darryl Miller MD CO2 [Moles/Vol] 24 mmol/L Normal 20-31 [facility] Comment on above: Performed By: #### C DP, LIVP, LIP, LACTIC, BMP #### [facility] [address] [place], [place] [id number] Data Analytics Analyst: Darryl Miller MD Creatinine [Mass/Vol] 0.79 mg/dL Normal 0.70-1.20 [facility] Comment on above: Performed By: #### C DP, LIVP, LIP, LACTIC, BMP #### [facility] [address] [place], [place] [id number] Data Analytics Analyst: Darryl Miller MD GFR/1.73 sq M.predicted among non-blacks MDRD (S/P/Bld) [Vol rate/Area] mL/min/{1.73_m2} Normal >60 [facility] Comment on above: Result Comment: Effective May 29, 2022 These results are not intended for use in patients <18 years of age. eGFR results are calculated without a race factor using the 2020 CKD-EPI equation. Careful clinical correlation is recommended, particularly when comparing to results calculated using previous equations. The CKD-EPI equation is less accurate in patients with extremes of muscle mass, extra-renal metabolism of creatine, excessive creatine ingestion, or following therapy that affects renal tubular secretion. Performed By: #### C DP, LIVP, LIP, LACTIC, BMP #### [facility] [address] [place] [address] Data Analytics Analyst: Darryl Miller MD Glucose [Mass/Vol] 126 mg/dL High 70-99 [facility] Comment on above: Performed By: #### C DP, LIVP, LIP, LACTIC, BMP #### [facility] [address] [place], [place] [id number] Data Analytics Analyst: Darryl Miller MD Potassium [Moles/Vol] 4.2 mmol/L Normal 3.7-5.3 [facility] Comment on above: Performed By: #### C DP, LIVP, LIP, LACTIC, BMP #### [facility] [address] [place], [place] [id number] Data Analytics Analyst: Darryl Miller MD Sodium [Moles/Vol] 135 mmol/L Normal 135-144 [facility] Comment on above: Performed By: #### C DP, LIVP, LIP, LACTIC, BMP #### [facility] [address] [place], [place] [id number] Data Analytics Analyst: Darryl Miller MD Urea nitrogen [Mass/Vol] 16 mg/dL Normal 6-20 [facility] Comment on above: Performed By: #### C DP, LIVP, LIP, LACTIC, BMP #### [facility] [address] [place] [address] Data Analytics Analyst: Darryl Miller MD CBC with Auto Differentialon 09-07-2022 Absolute Eos # 0.10 [facility] Absolute Lymph # 1.20 [facility] Absolute Boyle # 0.40 [facility] Basophils (Bld) [#/Vol] 0.00 10*3/uL [facility] Basophils/100 WBC (Bld) 1 % 0 - 2 % [facility] Differential Type YES [facility] Eosinophils/100 WBC (Bld) 2 % 0 - 5 % [facility] Hematocrit (Bld) [Volume fraction] 44.6 % 41 - 53 % [facility] Hemoglobin (Bld) [Mass/Vol] 15.2 g/dL 13.5 - 17.5 g/dL [facility] Lymphocytes/100 WBC (Bld) 18 % 13 - 44 % [facility] MCH (RBC) [Entitic mass] 29.5 pg 26 - 34 pg [facility] MCHC (RBC) [Mass/Vol] 34.1 g/dL 31 - 37 g/dL [facility] MCV (RBC) [Entitic vol] 86.5 fL 80 - 100 fL [facility] Monocytes/100 WBC (Bld) 7 % 5 - 9 % [facility] Platelet distribution width (Bld) [Ratio] 12.9 % 12.1 - 15.2 % [facility] Platelets (Bld) [#/Vol] 298 10*3/uL [facility] RBC (Bld) [#/Vol] 5.15 10*6/uL 4.5 - 5.9 m/uL [facility] Segmented neutrophils/100 WBC (Bld) 72 % 39 - 75 % [facility] Segs Absolute 4.90 [facility] WBC (Bld) [#/Vol] 6.7 10*3/uL [facility] CBC with Diffon 09-07-2022 Abs. Basophil 0.00 k/uL Normal 0.0-0.2 [facility] Comment on above: Performed By: #### C DP, LIVP, LIP, LACTIC, BMP #### [facility] [address] [place] [address] Data Analytics Analyst: Darryl Miller MD Abs.Neutrophil (Seg) 4.90 k/uL Normal 2.1-6.5 [facility] Comment on above: Performed By: #### C DP, LIVP, LIP, LACTIC, BMP #### [facility] [address] [place] [address] Data Analytics Analyst: Darryl Miller MD Auto Diff Performed YES Normal [facility] Comment on above: Performed By: #### C DP, LIVP, LIP, LACTIC, BMP #### [facility] [address] [place] [address] Data Analytics Analyst: Darryl Miller MD Basophils/100 WBC (Bld) 1 % Normal 0-2 [facility] Comment on above: Performed By: #### C DP, LIVP, LIP, LACTIC, BMP #### [facility] [address] [place] [address] Data Analytics Analyst: Darryl Miller MD Eosinophils (Bld) [#/Vol] 0.10 10*3/uL Normal 0.0-0.4 [facility] Comment on above: Performed By: #### C DP, LIVP, LIP, LACTIC, BMP #### [facility] [address] [place] [address] Data Analytics Analyst: Darryl Miller MD Eosinophils/100 WBC (Bld) 2 % Normal 0-5 [facility] Comment on above: Performed By: #### C DP, LIVP, LIP, LACTIC, BMP #### [facility] [address] [place] [address] Data Analytics Analyst: Darryl Miller MD Erythrocyte distribution width (RBC) [Ratio] 12.9 % Normal 12.1-15.2 [facility] Comment on above: Performed By: #### C DP, LIVP, LIP, LACTIC, BMP #### [facility] [address] [place] [address] Data Analytics Analyst: Darryl Miller MD Hematocrit (Bld) [Volume fraction] 44.6 % Normal 41-53 [facility] Comment on above: Performed By: #### C DP, LIVP, LIP, LACTIC, BMP #### [facility] [address] [place] [address] Data Analytics Analyst: Darryl Miller MD Hemoglobin (Bld) [Mass/Vol] 15.2 g/dL Normal 13.5-17.5 [facility] Comment on above: Performed By: #### C DP, LIVP, LIP, LACTIC, BMP #### [facility] [address] [place] [address] Data Analytics Analyst: Darryl Miller MD Lymphocytes (Bld) [#/Vol] 1.20 10*3/uL Normal 1.0-4.8 [facility] Comment on above: Performed By: #### C DP, LIVP, LIP, LACTIC, BMP #### [facility] [address] [place] [address] Data Analytics Analyst: Darryl Miller MD Lymphocytes/100 WBC (Bld) 18 % Normal 13-44 [facility] Comment on above: Performed By: #### C DP, LIVP, LIP, LACTIC, BMP #### [facility] [address] [place] [address] Data Analytics Analyst: Darryl Miller MD MCH (RBC) [Entitic mass] 29.5 pg Normal 26-34 [facility] Comment on above: Performed By: #### C DP, LIVP, LIP, LACTIC, BMP #### [facility] [address] [place] [address] Data Analytics Analyst: Darryl Miller MD MCHC (RBC) [Mass/Vol] 34.1 g/dL Normal 31-37 [facility] Comment on above: Performed By: #### C DP, LIVP, LIP, LACTIC, BMP #### [facility] [address] [place] [address] Data Analytics Analyst: Darryl Miller MD MCV (RBC) [Entitic vol] 86.5 fL Normal 80-100 [facility] Comment on above: Performed By: #### C DP, LIVP, LIP, LACTIC, BMP #### [facility] [address] [place] [address] Data Analytics Analyst: Darryl Miller MD Monocytes (Bld) [#/Vol] 0.40 10*3/uL Normal 0.0-1.0 [facility] Comment on above: Performed By: #### C DP, LIVP, LIP, LACTIC, BMP #### [facility] [address] [place] [address] Data Analytics Analyst: Darryl Miller MD Monocytes/100 WBC (Bld) 7 % Normal 5-9 [facility] Comment on above: Performed By: #### C DP, LIVP, LIP, LACTIC, BMP #### [facility] [address] [place] [address] Data Analytics Analyst: Darryl Miller MD Neutrophil (Seg) 72 % Normal 39-75 [facility] Comment on above: Performed By: #### C DP, LIVP, LIP, LACTIC, BMP #### [facility] [address] [place] [address] Data Analytics Analyst: Darryl Miller MD Platelets (Bld) [#/Vol] 298 10*3/uL Normal 140-450 [facility] Comment on above: Performed By: #### C DP, LIVP, LIP, LACTIC, BMP #### [facility] [address] [place] [address] Data Analytics Analyst: Darryl Miller MD RBC (Bld) [#/Vol] 5.15 10*6/uL Normal 4.5-5.9 [facility] Comment on above: Performed By: #### C DP, LIVP, LIP, LACTIC, BMP #### [facility] [address] [place] [address] Data Analytics Analyst: Darryl Miller MD WBC (Bld) [#/Vol] 6.7 10*3/uL Normal 3.5-11.0 [facility] Comment on above: Performed By: #### C DP, LIVP, LIP, LACTIC, BMP #### [facility] [address] [place] [address] Data Analytics Analyst: Darryl Miller MD CT ABDOMEN PELVIS W IV CONTR Zay 09-07-2022 CT ABDOMEN PELVIS W IV CONTRAST EXAMINATION: CT ABDOMEN PELVIS W IV CONTRAST, 09/07/2022 8:30 AM EST HISTORY: Reason for exam:->abd pain COMPARISON: 03/27/2021 [place] TECHNIQUE: CT scan of the abdomen and pelvis was performed with IV contrast. CT dose reduction technique was used, including Automated Exposure Control. FINDINGS: POSITIVES: None. NEGATIVES: Negative for diverticulitis. Normal appendix. 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 Small right renal cyst unchanged. Small fat-containing umbilical hernia unchanged. ROUTINE: No bowel obstruction, free air or free fluid. Solid organs are normal. No unexpected mass. Normal gallbladder and urinary bladder. IMPRESSION: 1. No acute surgical change. 2. Small fat-containing umbilical hernia, unchanged. Interpreted by: Parish Jordan Jr., MD Signed by: Parish Jordan Jr., MD 09/07/22 Final result Normal [facility] CT ABDOMEN PELVIS W IV CONTR AST Additional Contrast? Noneon 09-07-2022 1. No acute surgical change. 2. Small fat-containing umbilical hernia, unchanged. [facility] RIS CONSOLIDATED EXAMINATION: CT ABDOMEN PELVIS W IV CONTRAST, 09/07/2022 8:30 AM EST HISTORY: Reason for exam:->abd pain COMPARISON: 03/27/2021 [place] TECHNIQUE: CT scan of the abdomen and pelvis was performed with IV contrast. CT dose reduction technique was used, including Automated Exposure Control. FINDINGS: POSITIVES: None. NEGATIVES: Negative for diverticulitis. Normal appendix. 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 Small right renal cyst unchanged. Small fat-containing umbilical hernia unchanged. ROUTINE: No bowel obstruction, free air or free fluid. Solid organs are normal. No unexpected mass. Normal gallbladder and urinary bladder. [facility] Parish Toure Jr., MD - 09/07/2022 EXAMINATION: CT ABDOMEN PELVIS W IV CONTRAST, 09/07/2022 8:30 AM EST HISTORY: Reason for exam:->abd pain COMPARISON: 03/27/2021 [place] TECHNIQUE: CT scan of the abdomen and pelvis was performed with IV contrast. CT dose reduction technique was used, including Automated Exposure Control. FINDINGS: POSITIVES: None. NEGATIVES: Negative for diverticulitis. Normal appendix. 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 Small right renal cyst unchanged. Small fat-containing umbilical hernia unchanged. ROUTINE: No bowel obstruction, free air or free fluid. Solid organs are normal. No unexpected mass. Normal gallbladder and urinary bladder. IMPRESSION: 1. No acute surgical change. 2. Small fat-containing umbilical hernia, unchanged. [employer] Work Phone: Radiology Study observation (narrative) [facility] Work Phone: CT ABDOMEN PELVIS W IV CONTR AST Additional Contrast? NoneOrdered By: Parish Jordan on 09-07-2022 [employer] Work Phone: Hepatic Function Panelon Albumin [Mass/Vol] 4.6 g/dL 3.5 - 5.2 g/dL [facility] ALP (Bld) [Catalytic activity/Vol] 73 U/L 40 - 129 U/L [facility] ALT [Catalytic activity/Vol] 22 U/L 5 - 41 U/L [facility] AST [Catalytic activity/Vol] 16 U/L NINF - 40 U/L [facility] Bilirubin [Mass/Vol] 1.3 mg/dL High 0.3 - 1 .2 mg/dL [facility] Bilirubin, Indirect 1.1 mg/dL High 0.0 - 1. 0 mg/dL [facility] Bilirubin.indirect [Mass/Vol] 0.2 mg/dL NINF - 0.3 mg/dL [facility] Protein [Mass/Vol] 7.0 g/dL 6.4 - 8.3 g/dL [facility] Lactic Acidon 09-07-2022 Lactate [Moles/Vol] 2.0 mmol/L Normal 0.5-2.2 [facility] Comment on above: Performed By: #### C DP, LIVP, LIP, LACTIC, BMP #### [facility] [address] [place] [address] Data Analytics Analyst: Darryl Miller MD Lactate [Moles/Vol] 2 mmol/L 0.5 - 2. 2 mmol/L [facility] Lipaseon 09-07-2022 Lipase [Catalytic activity/Vol] 24 U/L Normal 13-60 [facility] Comment on above: Performed By: #### C DP, LIVP, LIP, LACTIC, BMP #### [facility] [address] [place] [address] Data Analytics Analyst: Darryl Miller MD Lipase [Catalytic activity/Vol] 24 U/L 13 - 60 U/L [facility] Liver Profileon 09-07-2022 Albumin [Mass/Vol] 4.6 g/dL Normal 3.5-5.2 [facility] Comment on above: Performed By: #### C DP, LIVP, LIP, LACTIC, BMP #### [facility] [address] [place] [address] Data Analytics Analyst: Darryl Miller MD Alkaline Phos 73 U/L Normal 40-129 [facility] Comment on above: Performed By: #### C DP, LIVP, LIP, LACTIC, BMP #### [facility] [address] [place] [address] Data Analytics Analyst: Darryl Miller MD ALT [Catalytic activity/Vol] 22 U/L Normal 5-41 [facility] Comment on above: Performed By: #### C DP, LIVP, LIP, LACTIC, BMP #### [facility] [address] [place] [id number] Data Analytics Analyst: Darryl Miller MD AST [Catalytic activity/Vol] 16 U/L Normal <40 [facility] Comment on above: Performed By: #### C DP, LIVP, LIP, LACTIC, BMP #### [facility] [address] [place] [id number] Data Analytics Analyst: Darryl Miller MD Bilirubin [Mass/Vol] 1.3 mg/dL High 0.3-1.2 [facility] Comment on above: Performed By: #### C DP, LIVP, LIP, LACTIC, BMP #### [facility] [address] [place] [id number] Data Analytics Analyst: Darryl Miller MD Bilirubin, Indirect 1.1 mg/dL High 0.0-1.0 [facility] Comment on above: Performed By: #### C DP, LIVP, LIP, LACTIC, BMP #### [facility] [address] [place] [id number] Data Analytics Analyst: Darryl Miller MD Bilirubin.indirect [Mass/Vol] 0.2 mg/dL Normal <0.3 [facility] Comment on above: Performed By: #### C DP, LIVP, LIP, LACTIC, BMP #### [facility] [address] [place] [id number] Data Analytics Analyst: Darryl Miller MD Protein [Mass/Vol] 7.0 g/dL Normal 6.4-8.3 [facility] Comment on above: Performed By: #### C DP, LIVP, LIP, LACTIC, BMP #### [facility] [address] [place] [address] Data Analytics Analyst: Darryl Miller MD No Panel Informationon 09-07 Interpretation and review of laboratory results Abnormal [facility] Urinalysison 09-07-2022 Bilirubin Urine Negative NEGATIVE [facility] Color, UA Yellow Yellow [facility] Glucose, Ur Negative NEGATIVE [facility] Ketones Ql (U) Negative NEGATIVE [facility] Leukocyte esterase Test strip Ql (U) Negative NEGATIVE [facility] Nitrite, Urine Negative NEGATIVE [facility] pH, UA 8.0 5.0 - 8.0 [facility] Protein, UA Negative NEGATIVE [facility] Specific [place], UA 1.015 1.005 - 1.030 [facility] Turbidity UA Clear Clear [facility] Urinalysis Comments [facility] Urine Hgb Negative NEGATIVE [facility] Urobilinogen, Urine Normal Normal [facility] Urinalysis, Routineon 2022 Bilirubin, SemiQt,Ur Negative Normal NEG [facility] Comment on above: Performed By: #### U A #### [facility] [address] [place] [address] Data Analytics Analyst: Darryl Miller MD Blood, Urine Negative Normal NEG [facility] Comment on above: Performed By: #### U A #### [facility] [address] [place] [address] Data Analytics Analyst: Darryl Miller MD Clarity (U) Clear Normal CLEAR [facility] Comment on above: Performed By: #### U A #### [facility] [address] [place] [address] Data Analytics Analyst: Darryl Miller MD Color (U) Yellow Normal YEL [facility] Comment on above: Performed By: #### U A #### [facility] [address] [place] [address] Data Analytics Analyst: Darryl Miller MD Comment Normal [facility] Comment on above: Performed By: #### U A #### [facility] [address] [place] [address] Data Analytics Analyst: Darryl Miller MD Glucose Ql (U) Negative Normal NEG [facility] Comment on above: Performed By: #### U A #### [facility] [address] [place], [place] [id number] Data Analytics Analyst: Darryl Miller MD Ketones Ql (U) Negative Normal NEG [facility] Comment on above: Performed By: #### U A #### [facility] [address] [place], [place] [id number] Data Analytics Analyst: Darryl Miller MD Leukocyte esterase Test strip Ql (U) Negative Normal NEG [facility] Comment on above: Performed By: #### U A #### [facility] [address] [place] [address] Data Analytics Analyst: Darryl Miller MD Nitrite,Ur Negative Normal NEG [facility] Comment on above: Performed By: #### U A #### [facility] [address] [place] [address] Data Analytics Analyst: Darryl Miller MD PH,Ur 8.0 Normal 5.0-8.0 [facility] Comment on above: Performed By: #### U A #### [facility] [address] [place], [place] [id number] Data Analytics Analyst: Darryl Miller MD Protein Ql (U) Negative Normal NEG [facility] Comment on above: Performed By: #### U A #### [facility] [address] [place], [place] [id number] Data Analytics Analyst: Darryl Miller MD Spec. [place],Ur 1.015 Normal 1.005-1.030 [facility] Comment on above: Performed By: #### U A #### [facility] [address] [place] [address] Data Analytics Analyst: Darryl Miller MD Urobilinogen,Ur Normal Normal NORM [facility] Comment on above: Performed By: #### U A #### [facility] [address] [place] [address] Data Analytics Analyst: Darryl Miller MD BMPon 03-27-2020 Anion gap [Moles/Vol] 6 mmol/L Low 10 - 2 0 mmol/L [facility] Calcium [Mass/Vol] 8.6 mg/dL 8.4 - 10. 2 mg/dL [facility] Chloride [Moles/Vol] 106 mmol/L 98 - 10 8 mmol/L [facility] Creatinine [Mass/Vol] 0.99 mg/dL 0.50 - 1.30 [facility] GFR/1.73 sq M predicted among non-blacks MDRD (S/P/Bld) [Vol rate/Area] The eGFR should be used for monitoring renal function only and not for medication dosing. [facility] GFR/1.73 sq M.predicted CKD-EPI (S/P/Bld) [Vol rate/Area] 95 >=60 mL/min/1.73 m2 [facility] Glucose [Mass/Vol] 153 mg/dL High 65 - 99 mg/dL [facility] HCO3 [Moles/Vol] 29 mmol/L 21 - 32 mmol/L [facility] Interpretation and review of laboratory results Abnormal [facility] Potassium [Moles/Vol] 4.1 mmol/L 3.5 - 5.1 mmol/L [facility] Sodium [Moles/Vol] 137 mmol/L 135 - 145 mmol/L [facility] Urea nitrogen [Mass/Vol] 17 mg/dL 8 - 25 mg/dL [facility] Urea nitrogen/Creatinine [Mass ratio] 17.2 mg/mg [facility] CBC WITH AUTO DIFFERENTIALon 03-27-2020 Basophils (Bld) [#/Vol] 0.04 10*3/uL [facility] Basophils/100 WBC (Bld) 0.7 % [facility] Eosinophils (Bld) [#/Vol] 0.08 10*3/uL [facility] Eosinophils/100 WBC (Bld) 1.4 % [facility] Erythrocyte distribution width (RBC) [Entitic vol] 12.6 % 11.6 - 14.8 % [facility] Hematocrit (Bld) [Volume fraction] 42.4 % 41 - 53 % [facility] Hemoglobin (Bld) [Mass/Vol] 14.3 g/dL 13.5 - 17.5 g/dL [facility] Immature granulocytes (Bld) [#/Vol] 0.02 10*3/uL [facility] Immature granulocytes/100 WBC (Bld) 0.30 % [facility] Comment on above: The IG parameter is the percentage of metamyelocytes, myelocytes and promyelocytes. An immature granulocyte count (IG) of 1% or more suggests the possibility of infection, an IG count of 3% is very likely related to an infection. Interpretation and review of laboratory results Abnormal [facility] Lymphocytes (Bld) [#/Vol] 1.17 10*3/uL [facility] Lymphocytes/100 WBC (Bld) 20.4 % [facility] MCH (RBC) [Entitic mass] 29.8 pg 26 - 34 pg [facility] MCHC (RBC) [Mass/Vol] 33.7 g/dL 31 - 37 g/dL [facility] MCV (RBC) [Entitic vol] 88.3 fL 80 - 100 fL [facility] Monocytes (Bld) [#/Vol] 0.35 10*3/uL [facility] Monocytes/100 WBC (Bld) 6.1 % [facility] Neutrophils (Bld) [#/Vol] 4.07 10*3/uL [facility] Neutrophils/100 WBC (Bld) 71.1 % [facility] Nucleated RBC (Bld) [#/Vol] 0.00 10*3/uL [facility] Nucleated RBC/100 WBC (Bld) [Ratio] 0.0 % [facility] Platelet mean volume (Bld) [Entitic vol] 9.0 fL Low 9.4 - 12.4 fL [facility] Platelets (Bld) [#/Vol] 243 10*3/uL [facility] RBC (Bld) [#/Vol] 4.80 10*6/uL [facility] eah WBC (Bld) [#/Vol] 5.73 10*3/uL [facility] CRP, Inflammationon 08-01-20 20 CRP [Mass/Vol] mg/L 0 - 10 mg/L [facility] CT ABDOMEN PELVIS WITH IV CO NTRAST ONLYon 03-27-2020 CT ABDOMEN PELVIS WITH IV CONTRAST ONLY CLINICAL HISTORY: Mid- to upper abdominal pain. EXAMINATION: ENHANCED CT SCAN OF THE ABDOMEN AND PELVIS 03/27/2020 COMPARISON: None. TECHNIQUE: 3.75 mm axial images from lung bases through ischial tuberosities following administration of intravenous contrast were obtained. No oral contrast was utilized. Sagittal, coronal reconstructions were performed. 75 mL of Isovue-370 was utilized as intravenous contrast. Dose reduction techniques were achieved by using automated exposure control and/or adjustment of mA and/or kV according to patient size and/or use of iterative reconstruction technique. FINDINGS: There are no focal abnormalities of the visualized lung bases. The visualized cardiac, posterior mediastinal structures seem normal. CT ABDOMEN: The liver, gallbladder, pancreas, adrenal glands, left kidney appear normal. The spleen measures 12.5 cm in craniocaudal dimensions without focal lesions. There is a low-density lesion in the midpole of the right kidney, measuring 1.0 cm in size with average Hounsfield units of 16. The remaining right kidney is normal. The abdominal aorta has normal caliber. There are no abnormally dilated loops of small or large bowel. There is a normal-appearing appendix. CT PELVIS: The bladder, prostate, seminal vesicles are normal. There is some prominence to lymph nodes in the pelvis. The lymph node along the left external iliac chain at the level of mid acetabulum, image 99 sequence 2, measures 1.0 x 2.3 cm. The lymph node at the same level on the right measures approximately 0.8 x 1.5 cm. There is no significant retroperitoneal adenopathy. There are a few small lymph nodes at the level of delfino hepatis. The visualized osseous structures demonstrate significant degenerative disc disease with vacuum disc phenomena at L5-S1. IMPRESSION: 1. No obvious explanation for mid- to lower abdominal pain. 2. Splenomegaly. 3. Normal-appearing appendix. 4. Simple cyst in the right kidney. 5. A few small lymph nodes in the inguinal area, distal external iliac chains. These could be reactive, however lymphomatous process cannot be excluded. Followup in 3 to 6 months' time might be of help. [employer] Workstation ID: [id number] Dictated by: SHELBY TOLENTINO on [facility] Mar 27, 2020 6:12:29 AM EDT Transcribed by: DEMARCUS MIX on [facility] Mar 27, 2020 6:25:20 AM EDT Finalized by: SHELBY TOLENTINO on [facility] Mar 27, 2020 6:49:01 AM EDT [facility] Comment on above: Order Comment: Injur y/Trauma or Illness?:Illness/Other How long have you had these symptoms (acute/chronic)?:Acute Reason for exam?:upper abd pain Type of Exam?:Initial Additional signs and symptoms?:. CT Abdomen Pelvis With IV Co ntrast Onlyon 03-27-2020 Interface, Rad In [employer] - 03/27/2020 6:51 AM EDT CLINICAL HISTORY: Mid- to upper abdominal pain. EXAMINATION: ENHANCED CT SCAN OF THE ABDOMEN AND PELVIS 03/27/2020 COMPARISON: None. TECHNIQUE: 3.75 mm axial images from lung bases through ischial tuberosities following administration of intravenous contrast were obtained. No oral contrast was utilized. Sagittal, coronal reconstructions were performed. 75 mL of Isovue-370 was utilized as intravenous contrast. Dose reduction techniques were achieved by using automated exposure control and/or adjustment of mA and/or kV according to patient size and/or use of iterative reconstruction technique. FINDINGS: There are no focal abnormalities of the visualized lung bases. The visualized cardiac, posterior mediastinal structures seem normal. CT ABDOMEN: The liver, gallbladder, pancreas, adrenal glands, left kidney appear normal. The spleen measures 12.5 cm in craniocaudal dimensions without focal lesions. There is a low-density lesion in the midpole of the right kidney, measuring 1.0 cm in size with average Hounsfield units of 16. The remaining right kidney is normal. The abdominal aorta has normal caliber. There are no abnormally dilated loops of small or large bowel. There is a normal-appearing appendix. CT PELVIS: The bladder, prostate, seminal vesicles are normal. There is some prominence to lymph nodes in the pelvis. The lymph node along the left external iliac chain at the level of mid acetabulum, image 99 sequence 2, measures 1.0 x 2.3 cm. The lymph node at the same level on the right measures approximately 0.8 x 1.5 cm. There is no significant retroperitoneal adenopathy. There are a few small lymph nodes at the level of delfino hepatis. The visualized osseous structures demonstrate significant degenerative disc disease with vacuum disc phenomena at L5-S1. IMPRESSION: 1. No obvious explanation for mid- to lower abdominal pain. 2. Splenomegaly. 3. Normal-appearing appendix. 4. Simple cyst in the right kidney. 5. A few small lymph nodes in the inguinal area, distal external iliac chains. These could be reactive, however lymphomatous process cannot be excluded. Followup in 3 to 6 months' time might be of help. [employer] Workstation ID: [id number] [facility] CLINICAL HISTORY: Mid- to upper abdominal pain. EXAMINATION: ENHANCED CT SCAN OF THE ABDOMEN AND PELVIS 03/27/2020 COMPARISON: None. TECHNIQUE: 3.75 mm axial images from lung bases through ischial tuberosities following administration of intravenous contrast were obtained. No oral contrast was utilized. Sagittal, coronal reconstructions were performed. 75 mL of Isovue-370 was utilized as intravenous contrast. Dose reduction techniques were achieved by using automated exposure control and/or adjustment of mA and/or kV according to patient size and/or use of iterative reconstruction technique. FINDINGS: There are no focal abnormalities of the visualized lung bases. The visualized cardiac, posterior mediastinal structures seem normal. CT ABDOMEN: The liver, gallbladder, pancreas, adrenal glands, left kidney appear normal. The spleen measures 12.5 cm in craniocaudal dimensions without focal lesions. There is a low-density lesion in the midpole of the right kidney, measuring 1.0 cm in size with average Hounsfield units of 16. The remaining right kidney is normal. The abdominal aorta has normal caliber. There are no abnormally dilated loops of small or large bowel. There is a normal-appearing appendix. CT PELVIS: The bladder, prostate, seminal vesicles are normal. There is some prominence to lymph nodes in the pelvis. The lymph node along the left external iliac chain at the level of mid acetabulum, image 99 sequence 2, measures 1.0 x 2.3 cm. The lymph node at the same level on the right measures approximately 0.8 x 1.5 cm. There is no significant retroperitoneal adenopathy. There are a few small lymph nodes at the level of delfino hepatis. The visualized osseous structures demonstrate significant degenerative disc disease with vacuum disc phenomena at L5-S1. [facility] 1. No obvious explanation for mid- to lower abdominal pain. 2. Splenomegaly. 3. Normal-appearing appendix. 4. Simple cyst in the right kidney. 5. A few small lymph nodes in the inguinal area, distal external iliac chains. These could be reactive, however lymphomatous process cannot be excluded. Followup in 3 to 6 months' time might be of help. [employer] Workstation ID: [id number] [facility] ECG 12-LEADon 03-27-2020 Mame Galeano MD 03/27/2020 4:22 AM EKG 12-lead Date/Time: 03/27/2020 4:21 AM Performed by: Mame Galeano MD Authorized by: John Archer PA-C Interpreted by ED attending physician Rhythm: sinus rhythm BPM: 82 Conduction: conduction normal ST Segments: ST segments normal T Waves: T waves normal Clinical impression: normal ECG [facility] Hepatic Function Panel (LFT) on 03-27-2020 Albumin [Mass/Vol] 4.2 g/dL 3.2 - 5.2 g/dL [facility] ALP [Catalytic activity/Vol] 80 U/L 40 - 140 U/L [facility] ALT [Catalytic activity/Vol] 31 U/L 14 - 65 U/L [facility] AST [Catalytic activity/Vol] 12 U/L 0 - 45 U/L [facility] Bilirubin [Mass/Vol] 1.0 mg/dL 0 - 1.3 mg/dL [facility] Bilirubin.conjugated [Mass/Vol] 0.2 mg/dL 0 - 0.4 mg/dL [facility] Protein [Mass/Vol] 7.1 g/dL 6 - 8 g/dL [facility] Lactic Acid, Plasmaon 2019 Interpretation and review of laboratory results Normal [facility] Lactate [Moles/Vol] 1.9 mmol/L 0.6 - 2 mmol/L [facility] Lipaseon 03-27-2020 Lipase [Catalytic activity/Vol] 92 U/L 73 - 393 U/L [facility] Lipase [Catalytic activity/Vol] 100 U/L 73 - 393 U/L [facility] Otheron 03-27-2020 Extra Tube Hold for add-ons. [facility] Comment on above: Auto resulted. Interpretation and review of laboratory results Normal [facility] Interpretation and review of laboratory results Normal [facility] TROPONINon 03-27-2020 Troponin I.cardiac [Mass/Vol] ng/mL <=45 ng/L [facility] Troponin I.cardiac [Mass/Vol] Normal [facility] URINALYSISon 03-27-2020 Bacteria Auto Ql (U) None Seen None Se en /hpf [facility] Bilirubin Ql (U) Negative Negative [facility] th Clarity Refractometry automated (U) Clear Clear [facility] Color (U) Colorless Colorless, Yellow [facility] Epithelial cells.squamous Auto (Urine sed) [#/Area] 1 [facility] Glucose Auto test strip (U) [Mass/Vol] Negative Negative mg/dL [facility] Hemoglobin Auto test strip Ql (U) Negative Negative [facility] Interpretation and review of laboratory results Abnormal [facility] Ketones (U) [Mass/Vol] Negative Negative mg/dL [facility] Leukocyte esterase Auto test strip Ql (U) Negative Negative [facility] Nitrite Auto test strip Ql (U) Negative Negative [facility] pH (U) 7.0 [pH] [facility] Protein (U) [Mass/Vol] Negative Negative mg/dL [facility] RBC Auto (Urine sed) [#/Area] 1 [facility] Specific gravity (U) [Rel density] 1.046 High [facility] Urobilinogen (U) [Mass/Vol] <2.0 <2.0 mg/dL [facility] WBC Auto (Urine sed) [#/Area] 1 [facility] Microscopic examination is performed on all urinalysis samples and only positive findings are reported. The test for blood on the chemical analytic portion of urinalysis may also be positive due to hemoglobinuria and myoglobinuria and if red blood cells are present they are quantified by microscopic examination. [facility] Vital Signs Date Time Vital Sign Value Performing Clinician Isabela ram 12-31-2023 13:00-0400 Blood Pressure Location [facility] 12-31-2023 13:00-0400 Diastolic blood pressure 81 mm[Hg] [facility] 12-31-2023 13:00-0400 Heart rate 82 /min [facility] 12-31-2023 13:00-0400 Respiratory rate 16 /min Cyaetano [facility] 12-31-2023 13:00-0400 Systolic blood pressure 134 mm[Hg] [facility] 12-17-2023 13:20-0400 Blood Pressure Location Nayely Souza [facility] 12-17-2023 13:20-0400 Body temperature 97.88 [degF] Nayely Souza [facility] 12-17-2023 13:20-0400 Diastolic blood pressure 76 mm[Hg] Nayely Souza [facility] 12-17-2023 13:20-0400 Heart rate 87 /min Nayely Souza [facility] 12-17-2023 13:20-0400 Respiratory rate 18 /min Nayely Souza [facility] 12-17-2023 13:20-0400 SaO2% (BldA) [Mass fraction] 98 % Nayely Souza [facility] 12-17-2023 13:20-0400 Systolic blood pressure 130 mm[Hg] Nayely Souza [facility] 09-03-2023 11:01-0500 Blood Pressure Location Jasmin MCKEON [facility] 09-03-2023 11:01-0500 Diastolic blood pressure 80 mm[Hg] Jasmin MCKEON [facility] 09-03-2023 11:01-0500 Heart rate 80 /min Jasmin MCKEON [facility] 09-03-2023 11:01-0500 Respiratory rate 16 /min Jasmin MCKEON [facility] 09-03-2023 11:01-0500 SaO2% (BldA) [Mass fraction] 97 % Jasmin MCKEON [facility] 09-03-2023 11:01-0500 Systolic blood pressure 120 mm[Hg] Jasmin MCKEON [facility] 08-15-2023 11:33-0500 Diastolic blood pressure 81 mm[Hg] [facility] 08-15-2023 11:33-0500 Heart rate 76 /min [facility] 08-15-2023 11:33-0500 Respiratory rate 18 /min [facility] 08-15-2023 11:33-0500 SaO2% (BldA) [Mass fraction] 98 % [facility]ue[facility] 08-15-2023 11:33-0500 Systolic blood pressure 138 mm[Hg] [facility] 08-15-2023 10:25-0500 Diastolic blood pressure 107 mm[Hg] [facility] 08-15-2023 10:25-0500 Heart rate 73 /min [facility] 08-15-2023 10:25-0500 Mean blood pressure 120 mm[Hg] [facility] 08-15-2023 10:25-0500 Respiratory rate 18 /min [facility] 08-15-2023 10:25-0500 SaO2% (BldA) [Mass fraction] 99 % Huey Garcia [facility] 08-15-2023 10:25-0500 Systolic blood pressure 147 mm[Hg] [facility]y Garcia [facility] 08-15-2023 09:31-0500 Body temperature 98.24 [degF] [facility] Garcia [facility] 08-15-2023 09:31-0500 Diastolic blood pressure 86 mm[Hg] [facility]uey Garcia [facility] 08-15-2023 09:31-0500 Heart rate 89 /min Huey Garcia [facility] 08-15-2023 09:31-0500 Respiratory rate 18 /min Huey Garcia [facility] 08-15-2023 09:31-0500 SaO2% (BldA) [Mass fraction] 98 % Huey Garcia [facility] 08-15-2023 09:31-0500 Systolic blood pressure 149 mm[Hg] Huey Garcia [facility] 08-15-2023 09:16-0500 Body temperature 97.88 [degF] [facility]y Garcia [facility] 08-15-2023 09:16-0500 Heart rate 80 /min Huey Garcia [facility] 07-13-2023 12:52-0500 Blood Pressure Location Lorenzo Gudimella [facility] 07-13-2023 12:52-0500 Diastolic blood pressure 82 mm[Hg] Lorenzo Gudimella [facility] 07-13-2023 12:52-0500 Heart rate 80 /min Lorenzo Gudimella [facility] 07-13-2023 12:52-0500 SaO2% (BldA) [Mass fraction] 96 % Lorenzo Gudimella [facility] 07-13-2023 12:52-0500 Systolic blood pressure 133 mm[Hg] Lorenzo Gudimella [facility] 02-26-2023 14:59-0400 Blood Pressure Location Nayely Souza [facility] 02-26-2023 14:59-0400 Diastolic blood pressure 80 mm[Hg] Nayely Souza [facility] 02-26-2023 14:59-0400 Heart rate 71 /min Nayely Souza [facility] 02-26-2023 14:59-0400 SaO2% (BldA) [Mass fraction] 96 % Nayely Souza [facility] 02-26-2023 14:59-0400 Systolic blood pressure 128 mm[Hg] Nayely Souza [facility] 09-07-2022 07:25-0500 Body temperature 98.2 [degF] Jasmin Huber MD Work Phone: [facility] [employer] 09-07-2022 07:25-0500 Diastolic blood pressure 96 mm[Hg] Jasmin Huber MD Work Phone: [facility] [employer] [facility] 09-07-2022 07:25-0500 Heart rate 76 /min Jasmin Huber MD Work Phone: [facility] [employer] [facility] 09-07-2022 07:25-0500 Respiratory rate 24 /min Jasmin Huber MD Work Phone: [employer] 09-07-2022 07:25-0500 SaO2% (BldA) [Mass fraction] 99 % Jasmin Huber MD Work Phone: [employer] 09-07-2022 07:25-0500 Systolic blood pressure 150 mm[Hg] Jasmin Huber MD Work Phone: [facility] [employer] 09-07-2022 07:24-0500 Body height 175.3 cm Jasmin Huber MD Work Phone: [facility] [employer] 09-07-2022 07:24-0500 Body mass index (BMI) [Ratio] 44.15 kg/m2 Jasmin Huber MD Work Phone: [facility] [employer] 09-07-2022 07:24-0500 Body weight 135.63 kg Jasmin Huber MD Work Phone: [facility] [employer] 03-17-2022 15:07-0400 Blood Pressure Location Sal Klein [facility] 03-17-2022 15:07-0400 Diastolic blood pressure 78 mm[Hg] Sal Klein [facility] 03-17-2022 15:07-0400 Heart rate 78 /min Sal Klein [facility] 03-17-2022 15:07-0400 SaO2% (BldA) [Mass fraction] 99 % Sal Klein [facility] 03-17-2022 15:07-0400 Systolic blood pressure 117 mm[Hg] [facility] 03-02-2022 13:12-0400 Blood Pressure Location [facility] 03-02-2022 13:12-0400 Diastolic blood pressure 70 mm[Hg] [facility] 03-02-2022 13:12-0400 Heart rate 75 /min [facility] 03-02-2022 13:12-0400 Respiratory rate 16 /min [facility] 03-02-2022 13:12-0400 SaO2% (BldA) [Mass fraction] 96 % [facility] 03-02-2022 13:12-0400 Systolic blood pressure 120 mm[Hg] [facility] 03-27-2020 05:09-0400 BP Diastolic 93 mm[Hg] Mame Galeano [facility] 03-27-2020 05:09-0400 BP Systolic 140 mm[Hg] Mameroro Galeano [facility] 03-27-2020 05:09-0400 Pulse (Heart Rate) 56 /min Mame Galeano [facility] 03-27-2020 05:09-0400 Pulse Oximetry 97 % Mame Galeano [facility] 03-27-2020 02:18-0400 BMI (Body Mass Index) 44.3 kg/m2 Mame Galeano [facility] 03-27-2020 02:18-0400 Body Temperature 97.81 [degF] Mame Galeano [facility] 03-27-2020 02:18-0400 Body weight 136.08 kg Mame Galeano [facility] 03-27-2020 02:18-0400 Height 175.3 cm Mame Galeano [facility] Encounters Encounter Date Encounter Type Care Provider Facility Start: 03-14-2024 ambulatory Cayetano Gonzáles ty:[facility] Start: 02-21-2024 ambulatory Cayetano Gonzáles ty:[id number] Start: 12-31-2023 End: 12-31-2023 ambulatory Cayetano MON Facility:[facility] Start: 12-31-2023 End: 12-31-2023 Patient encounter procedure Cayetano MON [facility] Start: 12-17-2023 End: 12-17-2023 ambulatory Nayely Souza Facility: [facility] Start: 12-17-2023 End: 12-17-2023 Patient encounter procedure Nayely Souza [facility] Start: 10-04-2023 End: 10-04-2023 ambulatory Zion MORGANZA Facility:[facility] Start: 09-07-2023 ambulatory Lorenzo Gudimella Facilit y:[facility] Start: 09-04-2023 End: 09-04-2023 ambulatory Jasmin MCKEON Facility:[facility] Start: 09-03-2023 End: 09-03-2023 ambulatory Jasmin MCKEON Facility:[facility] Start: 09-03-2023 End: 09-03-2023 [facility] Start: 08-15-2023 End: 08-15-2023 Emergency department patient visit Huey Garcia [facility] Start: 07-13-2023 End: 07-13-2023 ambulatory Lorenzo Gudimella Facility:[facility] Start: 07-13-2023 End: 07-13-2023 Patient encounter procedure Lorenzo Gudimella [facility] Start: 07-13-2023 End: 07-13-2023 ambulatory Lorenzo Ashok Facility:[facility] Start: 07-13-2023 End: 07-13-2023 Patient encounter procedure Lorenzo Ashok [facility] Start: 07-13-2023 ambulatory Lorenzo Gudimella Facilit y:[facility] Start: 06-20-2023 ambulatory Gena PIMENTEL Facility:[facility] Start: 04-25-2023 End: 04-25-2023 ambulatory Jane Goldman Facility:[facility] Start: 04-25-2023 End: 04-25-2023 Patient encounter procedure Jane Goldman [facility] Start: 04-23-2023 End: 04-23-2023 ambulatory Gena PIMENTEL Facility[facility] Start: 02-26-2023 End: 02-26-2023 ambulatory Nayely Souza Facility:[facility] Start: 02-26-2023 End: 02-26-2023 Patient encounter procedure Nayely Souza [facility] Start: 09-07-2022 End: 09-07-2022 Emergency department patient visit SEDRICK DAS [facility] Start: 09-07-2022 End: 09-07-2022 Emergency department patient visit Jasmin Huber MD Work Phone: [facility] ED Comment on above: Nausea and vomiting, unspecified vomiting type (Primary Dx); Diarrhea, unspecified type; Generalized abdominal pain Start: 03-17-2022 End: 03-17-2022 Patient encounter procedure Sal Klein [facility] Start: 03-02-2022 End: 03-02-2022 Patient encounter procedure Karolina Monique Glass [facility] Start: 03-27-2020 End: 03-27-2020 Emergency department patient visit MAME GALLARDO [facility] Start: 03-27-2020 End: 03-27-2020 Emergency department patient visit Mame Galeano Work Phone: [facility] Comment on above: Splenomegaly (Primar y Dx); Lymphadenopathy, abdominal; Obesity, unspecified classification, unspecified obesity type, unspecified whether serious comorbidity present; Cyst of left kidney; Elevated blood pressure reading Procedures Date Procedure Procedure Detail Performing Clinician Start: 09-07-2022 Ct abdomen & pelvis w/contrast material Madeleine Wilson DO Work Phone: Start: 09-07-2022 Urnls dip stick/tabl et rgnt auto w/o microscopy Jasmin Huber MD Work Phone: Start: 09-07-2022 Basic metabolic pane l calcium total Jasmin Huber MD Work Phone: Start: 09-07-2022 Hepatic function panel Jasmin Huber MD Work Phone: Start: 03-27-2020 Urinalysis John Archer Work Phone: Start: 03-27-2020 Ct abdomen & pelvis w/contrast material John Archer Work Phone: Start: 03-27-2020 12 lead ECG John Archer Work Phone: Start: 03-27-2020 Basic metabolic 2000 panel - Serum or Plasma John Archer Work Phone: Start: 03-27-2020 Complete blood count with white cell differential, automated John Archer Work Phone: Start: 03-27-2020 Complete blood count with white cell differential, manual John Archer Work Phone: Start: 03-27-2020 Hepatic function 200 0 panel - Serum or Plasma John Archer Work Phone: Start: 03-27-2020 Lactate [Moles/volum e] in Serum or Plasma John Archer Work Phone: Start: 03-27-2020 End: 03-27-2020 Lipase [Enzymatic activity/volume] in Serum or Plasma John Archer Work Phone: Start: 03-27-2020 Troponin measurement Da shun Archer Work Phone: Start: 03-27-2020 C reactive protein [Mass/volume] in Serum or Plasma Mame Galeano Work Phone: Start: 03-27-2020 LIGHT BLUE TOP Mame Walkerunas Work Phone: Start: 03-27-2020 LIGHT GREEN TOP Mame Walkerunas Work Phone: Start: 03-27-2020 RAINBOW DRAW Mame Camargo ckunas Work Phone: Start: 09-04-2013 lateral ankle stabilization Liang modification of the Underwood procedure, synovectomy peroneal brevis and longus tendon 1 Karolina Glass Comment on above: application of below -knee posterior splint bilateral knee surgeries [facility] rt little finger surgery [facility] Plan of Treatment Date Care Activity Detail Author Start: 03-27-2022 Influenza vaccination Flu vaccine (# 1) [facility] [employer] Start: 04-27-2020 Influenza vaccinatio n given Sequential Influenza Vaccine (#1) [facility] Start: 2019 Lipid panel Lipids [facility] [employer] Start: 2014 Diabetes screen [facility] Start: 1997 Hepatitis C antibody , confirmatory test Hepatitis C Screening [facility] Start: 1997 Hepatitis C screening Hepatitis C sc reen [facility] Start: 1994 HIV screening [facility] Start: 1991 Depression Screen Depression Screen [facility] Start: 1982 History and physical examination, annual for health maintenance Wellness Visit [facility] Start: 02-21-1980 COVID-19 Vaccine (#1) COVID-19 Vacci ne (#1) [facility] Start: 1979 Tetanus vaccination Tetanus: Every 1 0yrs [facility] Immunizations Immunization Date Immunization Notes Care Provider Ирина sanchez NEGATED: Highlighted row has not occurred!09-03-2023 influenza virus vaccine, unspecified formulation Jasmin MCKEON [facility] NEGATED: Highlighted row has not occurred!03-02-2022 SARS-CoV-2 mRNA (tozinameran 5y-11y) vaccine [facility] NEGATED: Highlighted row has not occurred!10-25-2021 influenza virus vaccine, unspecified formulation [facility] Payers Date Payer Category Payer Unknown [id number] 2020 Unknown [id number] 2019 Unknown [id number] 2019 Unknown DENNISE AVILA/PREF/HMO/PPO xxxxxxxxxxxx 2019-Present [id number] 1979 Unknown [id number] 1979 Unknown [id number] 1979 Unknown [id number] 1979 Unknown [id number] 1979 Unknown [id number] 1979 Unknown [id number] 1979 Unknown [id number] 1979 Unknown [id number] 1979 Unknown [id number] 1979 Unknown [id number] 1979 Unknown [id number] 1979 Unknown [id number] 1979 Unknown [id number] Social History Date Type Detail Facility Start: 03-27-2020 [facility] Start: 1980 Sex Assigned At Not on file [facility] Start: 08-28-2022 End: 09-07-2022 Exposure to SARS-CoV-2 (event) Not sure [facility] Start: 03-02-2022 End: 12-31-2023 Tobacco smoking status Never smoked tobacco (finding) [facility] Comment on above: denies Tobacco smoking status Never [facility] Comment on above: denies Sex Assigned At [facility] Functional Status Date Assessment Result Facility 12-31-2023 Functional Status N/A [facility] 12-17-2023 Functional Status N/A [facility] 09-03-2023 Functional Status N/A [facility] 08-15-2023 Functional Status N/A [facility] 07-13-2023 Functional Status N/A [facility] 02-26-2023 Functional Status N/A [facility] 03-02-2022 Functional Status Yes [facility] Clinical Notes 03-02-2022 to 12-31-2023 Note Date & Type Note Facility 12-31-2023 Hospital Discharge instructions Patient Education 12/31/2023 13:58:12 Hydrocelectomy, Adult, Care After Hydrocelectomy, Adult, Care After The following information offers guidance on how to care for yourself after your procedure. Your health care provider may also give you more specific instructions. If you have problems or questions, contact your health care provider. What can I expect after the procedure? After your procedure, it is common to have: Mild discomfort and swelling in the pouch that holds your testicles (scrotum). Bruising of the scrotum. Follow these instructions at home: Medicines Take ocxd-jwd-syuzcxf and prescription medicines only as told by your health care provider. Ask your health care provider if the medicine prescribed to you: ?Requires you to avoid driving or using machinery. ?Can cause constipation. You may need to take these actions to prevent or treat constipation: ?Drink enough fluid to keep your urine pale yellow. ?Take pzll-kwd-hmfyogs or prescription medicines. ?Eat foods that are high in fiber, such as beans, whole grains, and fresh fruits and vegetables. ?Limit foods that are high in fat and processed sugars, such as fried or sweet foods. Bathing Do not take baths, swim, or use a hot tub until your health care provider approves. Ask your health care provider if you may take showers. You may only be allowed to take sponge baths. If you were told to wear an athletic support strap (scrotal support), keep it dry. Take it off when you shower or bathe. Incision care Follow instructions from your health care provider about how to take care of your incision. Make sure you: ?Wash your hands with soap and water for at least 20 seconds before and after you change your bandage (dressing). If soap and water are not available, use hand odd bundle worker. ?Change your dressing as told by your health care provider. ?Leave stitches (sutures), skin glue, or adhesive strips in place. These skin closures may need to stay in place for 2 weeks or longer. If adhesive strip edges start to loosen and curl up, you may trim the loose edges. Do not remove adhesive strips completely unless your health care provider tells you to do that. Check your incision and scrotum every day for signs of infection. Check for: ?More redness, swelling, or pain. ?Fluid or blood. ?Warmth. ?Pus or a bad smell. Managing pain and swelling If directed, put ice on the affected area. To do this: Put ice in a plastic bag. Place a towel between your skin and the bag. Leave the ice on for 20 minutes, 2 3 times per day. Remove the ice if your skin turns bright red. This is very important. If you cannot feel pain, heat, or cold, you have a greater risk of damage to the area. Activity Do not lift anything that is heavier than 10 lb (4.5 kg) until your health care provider says that it is safe. If you were given a sedative during the procedure, it can affect you for several hours. Do not drive or operate machinery until your health care provider says that it is safe. Ask your health care provider when it is safe to drive. Return to your normal activities as told by your health care provider. Ask your health care provider what activities are safe for you. General instructions Do not use any products that contain nicotine or tobacco. These products include cigarettes, chewing tobacco, and vaping devices, such as e-cigarettes. These can delay healing after surgery. If you need help quitting, ask your health care provider. If you were given a scrotal support, wear it as told by your health care provider. Keep all follow-up visits. This is important. If you had a drain put in during the procedure, you will need to have it removed at a follow-up visit. Contact a health care provider if: Your pain is not controlled with medicine. You have more redness, swelling, or pain around your scrotum. You have fluid or blood coming from your incision. Your incision feels warm to the touch. You have pus or a bad smell coming from your incision. You have a fever. Get help right away if: You develop shaking, chills, and a fever that is higher than 101.8 F (38.8 C). You have redness or swelling that starts at your scrotum and spreads outward to your whole groin. You develop swelling in your legs. You have difficulty breathing. These symptoms may be an emergency. Get help right away. Call 911. Do not wait to see if the symptoms will go away. Do not drive yourself to the hospital. Summary After a hydrocelectomy, it is common to have mild discomfort, swelling, and bruising. Do not take baths, swim, or use a hot tub until your health care provider approves. Ask your health care provider if you may take showers. If directed, put ice on the affected area to help with pain and swelling. Do not lift anything that is heavier than 10 lb (4.5 kg) until your health care provider says that it is safe. Return to your normal activities as told by your health care provider. If you were given a scrotal support, keep it dry. Wear the scrotal support as told by your health care provider. This information is not intended to replace advice given to you by your health care provider. Make sure you discuss any questions you have with your health care provider. Document Revised: 03/30/2022 Document Reviewed: 03/30/2022 [employer] Patient Education 2022 [employer]. 12/31/2023 13:58:12 Hydrocelectomy, Adult Hydrocelectomy, Adult A hydrocelectomy is a surgical procedure to remove a collection of fluid (hydrocele) from the scrotum. The scrotum is the pouch that holds the testicles. You may need to have this procedure if a hydrocele is causing painful swelling in your scrotum. Tell a health care provider about: Any allergies you have. All medicines you are taking, including vitamins, herbs, eye drops, creams, and tkag-ihj-wwrsrjs medicines. Any problems you or family members have had with anesthetic medicines. Any bleeding problems you have. Any surgeries you have had. Any medical conditions you have. What are the risks? Generally, this is a safe procedure. However, problems may occur, including: Bleeding into the scrotum (scrotal hematoma). Damage to nearby structures or organs, including to the testicle or the tube that carries sperm out of the testicle (vas deferens). Infection. Allergic reactions to medicines. What happens before the procedure? When to stop eating and drinking Follow instructions from your health care provider about what you may eat and drink before your procedure. These may include: 8 hours before your procedure ?Stop eating most foods. Do not eat meat, fried foods, or fatty foods. ?Eat only light foods, such as toast or crackers. ?All liquids are okay except energy drinks and alcohol. 6 hours before your procedure ?Stop eating. ?Drink only clear liquids, such as water, clear fruit juice, black coffee, plain tea, and sports drinks. ?Do not drink energy drinks or alcohol. 2 hours before your procedure ?Stop drinking all liquids. ?You may be allowed to take medicines with small sips of water. If you do not follow your health care provider's instructions, your procedure may be delayed or canceled. Medicines Ask your health care provider about: Changing or stopping your regular medicines. This is especially important if you are taking diabetes medicines or blood thinners. Taking medicines such as aspirin and ibuprofen. These medicines can thin your blood. Do not take these medicines unless your health care provider tells you to take them. Taking hgsn-abf-ymrhotd medicines, vitamins, herbs, and supplements. Surgery safety Ask your health care provider: How your surgery site will be marked. What steps will be taken to help prevent infection. These steps may include: ?Removing hair at the surgery site. ?Washing skin with a germ-killing soap. ?Taking antibiotic medicine. General instructions Do not use any products that contain nicotine or tobacco for at least 4 weeks before the procedure. These products include cigarettes, chewing tobacco, and vaping devices, such as e-cigarettes. If you need help quitting, ask your health care provider. If you will be going home right after the procedure, plan to have a responsible adult: ?Take you home from the hospital or clinic. You will not be allowed to drive. ? Care for you for the time you are told. What happens during the procedure? An IV will be inserted into one of your veins. You will be given one or both of the following: ?A medicine to make you relax (sedative). ?A medicine to make you fall asleep (general anesthetic). A small incision will be made through the skin of your scrotum. Your testicle and the hydrocele will be located, and the hydrocele sac will be opened with an incision. The fluid will be drained from the hydrocele. Part of the hydrocele sac may be removed. The hydrocele will be closed with stitches that dissolve (absorbable sutures). This prevents fluid from building up again. If your hydrocele is large, you may have a thin, rubber drain placed to allow fluid to drain after the procedure. The incision in your scrotum will be closed with absorbable sutures, skin glue, or adhesive strips. A bandage (dressing) will be placed over the incision. The dressing may be held in place with an athletic support strap (scrotal support). The procedure may vary among health care providers and hospitals. What happens after the procedure? Your blood pressure, heart rate, breathing rate, and blood oxygen level will be monitored until you leave the hospital or clinic. You will be given pain medicine as needed. Your IV will be removed, and your insertion site will be checked for bleeding. You may need to wear a scrotal support. This holds the dressing in place and supports your scrotum. If you were given a sedative during the procedure, it can affect you for several hours. Do not drive or operate machinery until your health care provider says that it is safe. Summary A hydrocelectomy is a surgical procedure to remove a collection of fluid from the scrotum. You may need to have this procedure if a hydrocele is causing painful swelling in your scrotum. During the procedure, the hydrocele will be drained and then closed with stitches that dissolve (absorbable sutures). This prevents fluid from building up again. If your hydrocele is large, you may have a thin, rubber drain placed to allow fluid to drain after the procedure. You may need to wear a scrotal support after your procedure. This holds the dressing in place and supports your scrotum. This information is not intended to replace advice given to you by your health care provider. Make sure you discuss any questions you have with your health care provider. Document Revised: 03/30/2022 Document Reviewed: 03/30/2022 [employer] Patient Education 2022 [employer]. Follow Up Care 09/07/2023 09:15:41 With:ELIESER VERMA, Cayetano Shelby, URL Address: [facility] [address], [place] [id number]- [phone] When: Unknown Comments:schedule right hydrocelectomy [facility] 12-31-2023 Note Chief Complaint Referral *Hydrocele HPI Staff Evaluation requested by Dr Jasmin Mckeon due to hydrocele. Pt is a new pt. Never before seen in our office. (Verified on DA) No Hx of PSA on Clinisync Enlarged scrotum. Denies pain. Denies all urinary sx. CT ap 08/15/23 Scrotal US 09/04/23 History of Present Illness Tests reviewed: reviewed referral records, scrotal US, CT scan I have reviewed the previous health record information and history for this patient from external providers. I have reviewed and verified the staff HPI to be accurate for this encounter. Review of Systems PHQ Score Initial Depression Screen Score: 0 SCORE ROS - Provider Constitutional: denies weight loss, denies hot flashes. Eyes: denies eye problems. Gastrointestinal: denies nausea, denies vomiting. Cardiovascular: denies chest pain or angina. Integumentary: no dryness Musculoskeletal: denies musculoskeletal symptoms. ENMT: denies otolaryngeal symptoms. Respiratory: no shortness of breath. Heme/Lymph: denies easy bleeding tendency, denies easy bruising tendency. Psychiatric: no confusion, no anxiety. Genitourinary: See HPI. Physical Exam Vitals & Measurements HR: 82(Peripheral) RR: 16 BP: 134/81 HT: 69 in HT: 176 cm WT: 147 kg WT: 323.4 lb BMI: 47.46 General Appearance: alert, no distress, well nourished, well developed male. Head: normocephalic . Eyes: normal orbit and globe. ENMT: normal examination of external ears. Chest: Lungs CTA, respirations non labored. Cardiovascular: regular rate and rhythm. Abdomen: soft, non distended, no tenderness, no mass or organomegaly, no hernia. Genitourinary: abnormalR with a large R hydrocele, L with a small hydrocele scrotum, normal testes, normal urethra, normal epididymis, normal vas deferens/spermatic cord. Flank Pain: none. Bladder: nonpalpable. Penis: normal shaft, normal glans. Lymph Nodes: unremarkable palpation of the cervical area. Skin: warm, dry, no bruising. Psychiatric: cooperative, affect appropriate for age, normal judgement, euthymic mood. Assessment/Plan Tulio is a 43 yo male new pt referred by Dr. Jasmin Mckeon due to hydrocele. CT AP w/ con 08/15/23 - kidneys, ureters, and bladder wnl. 1. Bilateral hydrocele (N43.3: Hydrocele, unspecified) Scrotal US 09/04/23 [facility] [place] - Large bilateral hydroceles. Currently, he has a large R and small L hydrocele. Reviewed imaging results. Pt's partner reports right hydrocele has increased in size over the years, used to be about the size of his testicle. Denies any pain or complications. States hydrocele has become bothersome. Discussed treatment involves a scrotal incision, removing the sac of fluid, and, perhaps, removing part or all of the sac itself. There is a 10-15% chance of recurrence of this scrotal fluid collection, which may require another procedure in the future. 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 Advised pt he likely would have to be off work for 1-2 wks. -Will schedule Right Hydrocelectomy. The procedure risks, benefits, and treatment alternatives have been discussed with the patient. These include bleeding, infection, recurrence of fluid collection in the scrotum in 10-15%, and need for additional procedures, among others. Full informed consent has been obtained. Will order General anesthesia. -Continue monitoring L hydrocele 2. Epididymal cyst (N50.3: Cyst of epididymis) Scrotal US 09/04/23 [facility] [place] - L epididymal cyst measuring 1.6 x 1.5 x 1.3 cm. Follow-up With When Contact Information ELIESER VERMA, Cayetano Shelby, URL [facility] [address] [place] [address] [phone] Additional Instructions: schedule right hydrocelectomy Patient Education Hydrocelectomy, Adult, Care After Hydrocelectomy, Adult I, Stephani Jacob, personally scribed for Dr. Mon on 12/31/2023 14:00:59. . Documentation recorded by the scribe, Stephani Jacob, accurately reflects the services(s) I performed and decisions made by me. Authenticated by Dr. Mon on 12/31/2023 14:04:45. Problem List/Past Medical History Ongoing Ankle instability Bilateral hydrocele BiPAP (biphasic positive airway pressure) dependence BMI 45.0-49.9, adult Epididymal cyst epislepsy Erectile dysfunction Family history of diabetes mellitus Hypertension Moderate asthma with acute exacerbation Morbid obesity Right hydrocele Severe obstructive sleep apnea Swelling of the testicles Umbilical hernia Historical chronic edema to feet hypokalemia Procedure/Surgical History lateral ankle stabilization Liang modification of the Underwood procedure, synovectomy peroneal brevis and longus tendon (09/04/2013), bilateral knee surgeries, rt little finger surgery. Medications Albuterol (Eqv-ProAir HFA) 90 mcg/inh inhalation aerosol, 2 puff(s), Inhalation, q6hr, 2 refills albuterol 0.083% Inh Hillary 3 mL, 5 mg= 6 mL, Inhalation, q6hr, PRN lisinopril 20 mg Tab, 20 (more content not included)... [facility] Comment on above: Result Comment: Elec tronically Signed By: Cayetano MON MD\.br\Date and Time Signed: 12/31/23 14:04 EDT\.br\Electronically Co-Signed By: Stephani Jacob\.br\Date and Time Co-Signed: 12/31/23 14:01 EDT 12-17-2023 Hospital Discharge instructions Patient Education 12/17/2023 14:01:53 Managing Your Hypertension Managing Your Hypertension Hypertension, also called high blood pressure, is when the force of the blood pressing against the james of the arteries is too strong. Arteries are blood vessels that carry blood from your heart throughout your body. Hypertension forces the heart to work harder to pump blood and may cause the arteries to become narrow or stiff. Understanding blood pressure readings A blood pressure reading includes a higher number over a lower number: The first, or top, number is called the systolic pressure. It is a measure of the pressure in your arteries as your heart beats. The second, or bottom number, is called the diastolic pressure. It is a measure of the pressure in your arteries as the heart relaxes. For most people, a normal blood pressure is below 120/80. Your personal target blood pressure may vary depending on your medical conditions, your age, and other factors. Blood pressure is classified into four stages. Based on your blood pressure reading, your health care provider may use the following stages to determine what type of treatment you need, if any. Systolic pressure and diastolic pressure are measured in a unit called millimeters of mercury (mmHg). Normal Systolic pressure: below 120. Diastolic pressure: below 80. Elevated Systolic pressure: 120 129. Diastolic pressure: below 80. Hypertension stage 1 Systolic pressure: 130 139. Diastolic pressure: 80 89. Hypertension stage 2 Systolic pressure: 140 or above. Diastolic pressure: 90 or above. How can this condition affect me? Managing your hypertension is very important. Over time, hypertension can damage the arteries and decrease blood flow to parts of the body, including the brain, heart, and kidneys. Having untreated or uncontrolled hypertension can lead to: A heart attack. A stroke. A weakened blood vessel (aneurysm). Heart failure. Kidney damage. Eye damage. Memory and concentration problems. Vascular dementia. What actions can I take to manage this condition? Hypertension can be managed by making lifestyle changes and possibly by taking medicines. Your health care provider will help you make a plan to bring your blood pressure within a normal range. You may be referred for counseling on a healthy diet and physical activity. Nutrition Eat a diet that is high in fiber and potassium, and low in salt (sodium), added sugar, and fat. An example eating plan is called the DASH diet. DASH stands for Dietary Approaches to Stop Hypertension. To eat this way: ?Eat plenty of fresh fruits and vegetables. Try to fill one-half of your plate at each meal with fruits and vegetables. ?Eat whole grains, such as whole-wheat pasta, brown rice, or whole-grain bread. Fill about one-fourth of your plate with whole grains. ?Eat low-fat dairy products. ?Avoid fatty cuts of meat, processed or cured meats, and poultry with skin. Fill about one-fourth of your plate with lean proteins such as fish, chicken without skin, beans, eggs, and tofu. ?Avoid pre-made and processed foods. These tend to be higher in sodium, added sugar, and fat. Reduce your daily sodium intake. Many people with hypertension should eat less than 1,500 mg of sodium a day. Lifestyle Work with your health care provider to maintain a healthy body weight or to lose weight. Ask what an ideal weight is for you. Get at least 30 minutes of exercise that causes your heart to beat faster (aerobic exercise) most days of the week. Activities may include walking, swimming, or biking. Include exercise to strengthen your muscles (resistance exercise), such as weight lifting, as part of your weekly exercise routine. Try to do these types of exercises for 30 minutes at least 3 days a week. Do not use any products that contain nicotine or tobacco. These products include cigarettes, chewing tobacco, and vaping devices, such as e-cigarettes. If you need help quitting, ask your health care provider. Control any long-term (chronic) conditions you have, such as high cholesterol or diabetes. Identify your sources of stress and find ways to manage stress. This may include meditation, deep breathing, or making time for fun activities. Alcohol use Do not drink alcohol if: ?Your health care provider tells you not to drink. ?You are , may be , or are planning to become . If you drink alcohol: ?Limit how much you have to: ?0 1 drink a day for women. ?0 2 drinks a day for men. ?Know how much alcohol is in your drink. In the [place] one drink equals one 12 oz bottle of beer (355 mL), one 5 oz glass of wine (148 mL), or one 1 oz glass of hard liquor (44 mL). Medicines Your health care provider may prescribe medicine if lifestyle changes are not enough to get your blood pressure under control and if: Your systolic blood pressure is 130 or higher. Your diastolic blood pressure is 80 or higher. Take medicines only as told by your health care provider. Follow the directions carefully. Blood pressure medicines must be taken as told by your health care provider. The medicine does not work as well when you skip doses. Skipping doses also puts you at risk for problems. Monitoring Before you monitor your blood pressure: Do not smoke, drink caffeinated beverages, or exercise within 30 minutes before taking a measurement. Use the bathroom and empty your bladder (urinate). Sit quietly for at least 5 minutes before taking measurements. Monitor your blood pressure at home as told by your health care provider. To do this: Sit with your back straight and supported. Place your feet flat on the floor. Do not cross your legs. Support your arm on a flat surface, such as a table. Make sure your upper arm is at heart level. Each time you measure, take two or three readings one minute apart and record the results. You may also need to have your blood pressure checked regularly by your health care provider. General information Talk with your health care provider about your diet, exercise habits, and other lifestyle factors that may be contributing to hypertension. Review all the medicines you take with your health care provider because there may be side effects or interactions. Keep all follow-up visits. Your health care provider can help you create and adjust your plan for managing your high blood pressure. Where to find more information National Heart, Lung, and Blood [place]: www.nhlbi.nih.gov [place] [employer]: www.heart.org Contact a health care provider if: You think you are having a reaction to medicines you have taken. You have repeated (recurrent) headaches. You feel dizzy. You have swelling in your ankles. You have trouble with your vision. Get help right away if: You develop a severe headache or confusion. You have unusual weakness or numbness, or you feel faint. You have severe pain in your chest or abdomen. You vomit repeatedly. You have trouble breathing. These symptoms may be an emergency. Get help right away. Call 911. Do not wait to see if the symptoms will go away. Do not drive yourself to the hospital. Summary Hypertension is when the force of blood pumping through your arteries is too strong. If this condition is not controlled, it may put you at risk for serious complications. Your personal target blood pressure may vary depending on your medical conditions, your age, and other factors. For most people, a normal blood pressure is less than 120/80. Hypertension is managed by lifestyle changes, medicines, or both. Lifestyle changes to help manage hypertension include losing weight, eating a healthy, low-sodium diet, exercising more, stopping smoking, and limiting alcohol. This information is not intended to replace advice given to you by your health care provider. Make sure you discuss any questions you have with your health care provider. Document Revised: 04/27/2022 Document Reviewed: 04/27/2022 [employer] Patient Education 2022 [employer]. [facility] [place] 09-03-2023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 Notes (unrecognized secti on and content) [facility] ATTENDING NOTE: NAME: Tulio Acosta 39 y.o. CSN: [id number] PCP: Physician No History: Chief Complaint: Abdominal Pain HPI: The history was obtained from the patient. Tulio is a 39 y.o. male who presents with a chief complaint of Abdominal Pain. The patient states he developed abdominal pain yesterday it has been generalized in the mid abdomen radiating to both sides. No acute back pain is described no trauma no rashes no fevers no urinary symptoms the patient is not anticoagulated. He has had no vomiting, he had some loose stool. He has a known history of hemorrhoids and has occasional rectal bleeding but no significant bleeding is reported. The patient has had no rectal pain. The patient denies a prior history abdominal surgery. No history of gallbladder disease pancreatitis or gastritis. No chest pain or shortness of breath he is not known to be diabetic. No history of kidney stones. No urinary problems. PMHx: History reviewed. No pertinent past medical history. PMSx: History reviewed. No pertinent surgical history. FAM. Hx: History reviewed. No pertinent family history. SOC. Hx: Social History Socioeconomic History Marital status: Spouse name: Not on file Number of children: Not on file Years of education: Not on file Highest education level: Not on file Occupational History Not on file Social Needs Financial resource strain: Not on file Food insecurity Worry: Not on file Inability: Not on file Transportation needs Medical: Not on file Non-medical: Not on file Tobacco Use Smoking status: Not on file Substance and Sexual Activity Alcohol use: Not on file Drug use: Not on file Sexual activity: Not on file Lifestyle Physical activity Days per week: Not on file Minutes per session: Not on file Stress: Not on file Relationships Social connections Talks on phone: Not on file Gets together: Not on file Attends episcopalian service: Not on file Active member of club or organization: Not on file Attends meetings of clubs or organizations: Not on file Relationship status: Not on file Other Topics Concern Not on file Social History Narrative Not on file MEDs: No current outpatient medications on file prior to encounter. ALL: Allergies Allergen Reactions Tetanus Vaccines And Toxoid ROS: Review of Systems Positives and pertinent negatives as per HPI. All other systems were reviewed and are negative. Physical Exam: Patient Vitals for the past 24 hrs: BP Temp Temp src Pulse SpO2 Height Weight 03/27/20 0509 (!) 140/93 (!) 56 97 % 03/27/20 0218 (!) 159/110 97.8 F (36.6 C) Oral 93 95 % 5' 9 136.1 kg (300 lb) Physical Exam Vitals signs and nursing note reviewed. Constitutional: Appearance: Normal appearance. HENT: Head: Normocephalic and atraumatic. Nose: Nose normal. Mouth/Throat: Mouth: Mucous membranes are moist. Pharynx: Oropharynx is clear. Eyes: General: Lids are normal. Vision grossly intact. Extraocular Movements: Extraocular movements intact. Conjunctiva/sclera: Conjunctivae normal. Neck: Musculoskeletal: Normal range of motion. No neck rigidity. Cardiovascular: Rate and Rhythm: Normal rate and regular rhythm. Heart sounds: Normal heart sounds. Pulmonary: Effort: Pulmonary effort is normal. No accessory muscle usage or respiratory distress. Breath sounds: Normal breath sounds. Abdominal: General: Abdomen is flat. Bowel sounds are normal. Palpations: Abdomen is soft. Tenderness: There is no abdominal tenderness. There is no right CVA tenderness or left CVA tenderness. Comments: No trauma or pain to palpation to the back. Musculoskeletal: Right lower leg: He exhibits no swelling. No edema. Left lower leg: He exhibits no swelling. No edema. Comments: No major joint disclocation or longbone fractures. All 4 extremities are warm well perfused without cyanosis or edema. Good range of motion throughout. Skin: General: Skin is warm and dry. Capillary Refill: Capillary refill takes less than 2 seconds. Findings: No rash (No acute rash on exposed skin). Neurological: General: No focal deficit present. Mental Status: He is alert. Cranial Nerves: Cranial nerves are intact. Motor: Motor function is intact. Psychiatric: Attention and Perception: Attention normal. Mood and Affect: Mood normal. Behavior: Behavior normal. Behavior is cooperative. Laboratory & Radiological Imaging (if done): Labs Reviewed URINALYSIS - Abnormal; Notable for the following components: Result Value Specific [place] 1.046 (*) All other components within normal limits Narrative: Microscopic examination is performed on all urinalysis samples and only positive findings are reported. The test for blood on the chemical analytic portion of urinalysis may also be positive due to hemoglobinuria and myoglobinuria and if red blood cells are present they are quantified by microscopic examination. BASIC METABOLIC PANEL - Abnormal; Notable for the following components: Anion Gap 6 (*) Glucose 153 (*) All other components within normal limits Narrative: The eGFR should be used for monitoring renal function only and not for medication dosing. CBC WITH AUTO DIFFERENTIAL - Abnormal; Notable for the following components: MPV 9.0 (*) All other components within normal limits HEPATIC FUNCTION PANEL - Normal LACTIC ACID, PLASMA - Normal LIPASE - Normal LIPASE - Normal CRP, INFLAMMATION - Normal CBC AND DIFFERENTIAL Narrative: The following orders were created for panel order CBC w/ Diff. Procedure Abnormality Status --------- ------ CBC Auto Differential[[id number]] Abnormal Final result Please view results for these tests on the individual orders. TROPONIN CT Abdomen Pelvis With IV Contrast Only Preliminary Result 1. No obvious explanation for mid- to lower abdominal pain. 2. Splenomegaly. 3. Normal-appearing appendix. 4. Simple cyst in the right kidney. 5. A few small lymph nodes in the inguinal area, distal external iliac chains. These could be reactive, however lymphomatous process cannot be excluded. Followup in 3 to 6 months' time might be of help. [employer] Workstation ID: [id number] ED Course / Medical Decision Making: The patient described diffuse abdominal pain, no history of chest pain or shortness of breath. No history of trauma. No vomiting, no diarrhea, the patient is not anticoagulated. He has no history of prior abdominal surgery. Laboratory studies reviewed, CT scan report reviewed. No emergent pathology identified. The patient's blood pressure was somewhat elevated on arrival, he was treated for discomfort and his blood pressure normalized. After observation and evaluation in the emergency department the patient felt improved and felt comfortable being discharged. He has a ride home with his . He was discharged in stable condition was given specific return to ER and follow-up instructions. Clinical Impression: 1. Splenomegaly 2. Lymphadenopathy, abdominal 3. Obesity, unspecified classification, unspecified obesity type, unspecified whether serious comorbidity present 4. Cyst of left kidney 5. Elevated blood pressure reading Disposition: ED Disposition ED Disposition Condition Comment Discharge Stable Tulio Acosta discharged to home/self care in stable condition. Mame Galeano MD ED Attending Physician [facility] (Please note that portions of this note have been completed with a voice recognition software. Efforts were made to correct any errors, but occasionally words are mis-transcribed.) Mame Galeano MD 03/27/20 0628 Arrive to er with belly pain. documented in this encounter ED Attestation Note - Mame Galeano MD - 03/27/2020 6:29 AM EDTED Procedure Note - Mame Galeano MD - 03/27/2020 4:21 AM EDT Miscellaneous Notes (unrecog nized section and content) ED Attestation: I have reviewed the Advanced Practice Provider's (CELY's) documentation. In addition, I have personally introduced myself to the patient, and have taken his history and performed an examination. I agree with the physical findings, management, clinical impression and disposition. Mame Galeano MD ED Attending Physician (Please note that portions of this note have been completed with a voice recognition software. Efforts were made to correct any errors, but occasionally words are mis-transcribed.) Associated Order(s): EKG 12-lead EKG 12-lead Date/Time: 03/27/2020 4:21 AM Performed by: Mame Galeano MD Authorized by: John Archer PA-C Interpreted by ED attending physician Rhythm: sinus rhythm BPM: 82 Conduction: conduction normal ST Segments: ST segments normal T Waves: T waves normal Clinical impression: normal ECG documented in this encounter Care Team (unrecognized sect ion and content) Personnel Name: Samira ROBLERO CNP Address: [address] [place] [address] Personnel Name: MONI RODRIGUEZ Samira Kim Address: [address], [address] Personnel Name: Nayely Souza PA-C Address: Address: [address] [place] [address]- Personnel Name: Nayely Souza PA-C Address: Address: [address] [place] [address]- Personnel Name: Nayely Souza PA-C Address: Address: [address] [place] [address]- Personnel Name: Nayely Souza PA-C Address: Address: [address] [place] [address]- Personnel Name: Nayely Souza PA-C Address: Address: [address] [place] [address]- Personnel Name: Nayely Souza PA-C Address: Address: [address] [place] [address]- Personnel Name: Nayely Souza PA-C Address: Address: [address] [place] [address] Personnel Name: Nayely Souza PA-C Address: Address: [address] [place] [address] Ordered Prescriptions (unrec ognized section and content) Prescription Sig Dispensed Refills Start Date End Da te dicyclomine (BENTYL) 20 MG tablet Take 1 tablet by mouth 2 times daily as needed (abd cramping) 6 tablet 0 09/07/2022 09/10/2022 ondansetron (ZOFRAN-ODT) 4 MG disintegrating tablet Take 1 tablet by mouth 3 times daily as needed for Nausea or Vomiting 12 tablet 0 09/07/2022 Scheduled Active and Recently Administ ered Medications (unrecognized section and content) Medication Order 09/05/2022 09/06/2022 09/07/2022 0.9 % sodium chloride bolus (COMPLETED) 1,000 mL (7.37 mL/kg), IntraVENous, at 983.6 mL/hr, Administer over 61 Minutes, ONCE, On Queenie 09/07/22 at 0845, For 1 dose 0838 (New Bag - Prov ider: Mg Lynch RN)0948 (Stopped - Provider: Mg Lynch RN) dicyclomine (BENTYL) capsule 10 mg (COMPLETED) 10 mg, Oral, ONCE, 1 dose, On Queenie 09/07/22 at 0915 0918 (Given - Provid er: Mg Lynch RN) fentaNYL (SUBLIMAZE) injection 50 mcg (COMPLETED) 50 mcg, IntraVENous, ONCE, 1 dose, On Queenie 09/07/22 at 0730, If oral and IV narcotics ordered, use oral first and only use IV if oral is ineffective or cannot take oral. Do Not give oral and IV within 1 hour of each other unless specifically ordered. 0735 (Given - Provid er: Sharla Lugo RN) ondansetron (ZOFRAN) injection 4 mg (COMPLETED) 4 mg, IntraVENous, ONCE, 1 dose, On Queenie 09/07/22 at 0730 0735 (Given - Provid er: Sharla Lugo RN) PRN Medication Order 09/05/2022 09/06/2022 09/07/2022 iopamidol (ISOVUE-370) 76 % injection 75 mL (COMPLETED) 75 mL, IntraVENous, IMG ONCE PRN, 1 dose, Starting on Queenie 09/07/22 at 0811, Until Queenie 09/07/22 at 0830, Other 0830 (Given - Provid er: Sharmin Hernandez) FOR RECORDS PERTAINING TO PATIENTS WHO ARE OR HAVE BEEN ENROLLED IN A CHEMICAL DEPENDENCY/SUBSTANCEABUSE PROGRAM, SOME INFORMATION MAY BE OMITTED. This clinical summary was aggregated from multiple sources. Caution should be exercised in using it in the provision of clinical care. This summary normalizes information from multiple sources, and as a consequence, information in this document may materially change the coding, format and clinical context of patient data. In addition, data may be omitted in some cases. CLINICAL DECISIONS SHOULD BE BASED ON THE PRIMARY CLINICAL RECORDS. [employer] [facility]. provides no warranty or guarantee of the accuracy or completeness of information in this document.
[2024-02-21] MEDS: LACTATED RINGER'S SOLUTION 1,000 ML 50 ML IV (12:44)
[2024-02-21] MEDS: CEFAZOLIN SODIUM/DEXTROSE,ISO 1 GM/50 ML IV.SOLN IV (14:05)
[2024-02-21] MEDS: BACITRACIN OINTMENT 28.4 GM TUBE 1 APPLIC TOPICAL (15:39)
--- NOTE | 2024-02-21 15:46 | PM.URSON ---
Urology Surgery Operative Note Operative Note Procedure Date: 02/21/24 Time Out Performed: yes Pre-op Diagnosis: Large right hydrocele Post-op Diagnosis: same as pre-op Procedures performed: 1. Right hydrocelectomy Anesthesia: General-LMA Estimated blood loss (mL): 5 Findings: Large right hydrocele. 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 The right is much larger than the left.This hydrocele has become bothersome in his daily life. He is strongly desirous for attempted surgical correction with right hydrocelectomy. He signed an informed consent after risks were explained in detail. Some of these include bleeding, infection, hematoma, recurrence just to name a few. Detailed description of Procedure: The patient was brought to the operating room and placed on the operating room table in the supine position.SCDs were placed on his lower extremities and turned on and functioning during the entire case. Timeout was done by all parties in the room. We all agreed upon the patient's identification and the planned procedures for this patient. General anesthesia was then administered via LMA. His genitalia were sterilely prepped and draped in the usual fashion. I started by making a Right Hemiscrotal incision in a transverse manner with a 15 blade scalpel. Sharp dissection was carried down through the scrotal layers with the needle tip Bovie cautery. We arrived at a tense large blue-colored fluid-filled sac. I sharply and bluntly dissected the hemiscrotal contents free of their attachments to the scrotal wall. The contents were then delivered. I bluntly freed up the Right-sided scrotal contents and the spermatic cord. I then sharply cut into the large hydrocele Sac with a Metzenbaum scissors. 300 cc of straw-colored fluid was aspirated. The sac was opened up cephalad caudad and 4 edges were tagged with hemostats. The testicle appeared in good condition. I then used the Bovie cautery and circumferentially excised the redundant hydrocele sac. This was sent for permanent sections.I then coagulated the edges of the sac very carefully. I then turned my attention to the dartos layer. Several small bleeders were coagulated with the Bovie cautery. 1 final inspection was done and there was no evidence of any bleeding.The right hemiscrotal contents were then placed back into the right hemiscrotum in the proper anatomic orientation. I then closed the dartos layer with 3-0 Vicryl in a running fashion. Scrotal skin was closed with 4-0 Vicryl in a running fashion. Bacitracin was applied to the incision. Sterile fluffs were placed and a scrotal support was then applied. He was then transferred to a [facility] bed and wheeled to PACU in stable condition.
[2024-02-21] MEDS: HYDROMORPHONE HCL 0.5 MG/0.5 ML SYRINGE IV (16:05)
[2024-02-21] MEDS: KETOROLAC TROMETHAMINE 10 MG TABLET PO (16:15)
== END 2024-02-21 17:05 | disposition home or self-care (01) ==
PROVIDERS: Visit Provider Urology
PROC: (CPT 920; principal; 2024-02-21 12:20)
DX: N43.3 Hydrocele, unspecified (principal); I10 Essential (primary) hypertension; N50.3 Cyst of epididymis; G47.33 Obstructive sleep apnea (adult) (pediatric); G40.909 Epilepsy, unspecified, not intractable, without status epilepticus; E66.01 Morbid (severe) obesity due to excess calories; Z68.42 Body mass index [BMI] 45.0-49.9, adult
CPT/HCPCS: 55040; 36415; 88304; J0131; J0690; J1100; J1170; J1885; J2250; J2371; J2704; J3010

== ENCOUNTER 2024-03-21 17:23 | Emergency (ER) | payer OTHER, SELFPAY ==
[2024-03-21 17:29] VITALS: BP 126/87; PULSE 85; TEMP 37.4; O2SAT 96; BMI 52.4
--- OUTSIDE RECORDS SUMMARY | 2024-03-21 17:38 | XMS_ITS | CCD ---
Author Organization [facility] Inform ion Partnership [facility] Care Team Providers Care Flight Engineer Name Role Phone CARSONKRISTYN MAME GALLARDO Attending Unavail able NO, PHYSICIAN Primary Care Unavailable No, Physician Primary Care Provider UnavailSamira Sinha Primary Care Physician [phone] Samira MONTEENGRO Primary Care Physician [phone] Unavailable Primary Care Provider Unavailyayo e SEDRICK DAS Primary Care Unavailable JASMIN HUBER Attending Unavailable Nayely Souza Primary Care Physician Nayely Souza Primary Care Physician Cayetano Mon Attending Unavailable Cayetano Mon Admitting Unavailable Ashok, Lorenzo Admitting Unavailable Lorenzo Pulido Attending Unavailable Huey Garcia Attending Unavailable Cayetano MON Attending Unavailable Lorenzo Pulido Attending Unavailable Gena PIMENTEL Attending Unavailable Zion MEDEROS Attending Unavailable Gena PIMENTEL Attending Unavailable Jasmin MCKEON Attending Unavailable Nayely Souza Attending Unavailable Cayetano MON Attending Unavailable Jasmin MCKEON Referring Unavailable Cayetano MON Attending Unavailable Cayetano MON Attending Unavailable Jones Basem GWilber Referring Unavailable Jones Basem GWilber Attending Unavailable Jasmin MCKEON Admitting Unavailable Jasmin MCKEON Attending Unavailable Jasmin MCKEON Referring Unavailable Allergies Allergy Classification Reported Allergen(s) Allergy Type Date of Onset Reaction(s) Facility (2 sources) TETANUS VACCINES AND TOXOID; Translations: [Unknown] Propensity to adverse reactions to drug (disorder) 0 [facility] Repository (11 sources) Budesonide / formoterol; Translations: [budesonide-for moterol] Drug Allergy Throat irritation (finding) [facility] Comment on above: mouth sores (12 sources) tetanus toxoid vaccine, inactivated; Translations: [tetanus toxoid] Drug Allergy Apnea, Swelling [facility] (1 source) Tetanus vaccine Propensity to adverse reactions to drug 2 [facility] (1 source) Budesonide / formoterol; Translations: [Symbicort] Drug Allergy [facility] Repository Medications Current Medications Medication Drug Class(es) Dates Sig (Normalized) Sig (Original) albuterol 0.83 mg/ml inhalation solution (3 sources) beta2-Adrenergic Agonist Start: 12-17-2023 take 5 mg by inhalation every six hours for wheezing albuterol 0.083% Inh Hillary 3 mL 5 mg, 6 mL, Inhalation, q6hr for wheezing, 60 EA, Refill(s) 0, [facility]/pharmacy #[id number], 176, cm, 12/17/23 13:27:00 EDT, Height/Length [...] day(s), # 6 tab(s), Refills(s) 0, Pharmacy: [facility]/pharmacy #[id number], 176, cm, 12/17/23 13:27:00 EDT, Height/Length [...] (LIST CLEANUP) lisinopril 20 mg oral tablet (12 sources) Angiotensin Converting Enzyme Inhibitor Start: 2023 take 1 tablet by mouth once daily lisinopril 20 mg Tab 20 mg = 1 tab(s), Oral, Daily, # 90 tab(s), Refills(s) 1, Pharmacy: [facility]/pharmacy #[id number], 176, cm, 08/15/23 9:19:00 EST, Height/Length Dosing, 143, kg, 08/15/23 9:19:00 EST, Weight Dosing Start Date: 08/31/23 Status: Ordered Start: 02-26-2023 take 1 tablet by moose th once daily lisinopril 20 mg Tab 20 mg = 1 tab(s), Oral, Daily, # 90 tab(s), Refills(s) 1, Pharmacy: [facility]/pharmacy #[id number], 176, cm, 02/26/23 15:01:00 EDT, Height/Length Dosing, 143.7, kg, 02/26/23 15:01:00 EDT, Weight Dosing Start Date: 02/26/23 Status: Ordered Start: 01-16-2022 take 1 tablet by moose th once daily lisinopril 20 mg Tab 20 mg = 1 tab(s), Oral, Daily, # 90 tab(s), Refills(s) 1, [id number] 175, cm, 11/07/21 7:11:00 EDT, Height/Length Dosing, 148, kg, 11/07/21 7:11:00 EDT, Weight Dosing Start Date: 01/16/22 Status: Ordered montelukast 10 mg oral tablet (12 sources) Leukotriene Receptor Antagonist Start: 08-31-2023 take 1 tablet by mouth once daily in the evening Singulair 10 mg Tab 10 mg = 1 tab(s), Oral, qPM, # 90 tab(s), Refills(s) 1, [id number] 176, cm, 08/15/23 9:19:00 EST, Height/Length Dosing, 143, kg, 08/15/23 9:19:00 EST, Weight Dosing Start Date: 08/31/23 Status: Ordered Start: 02-26-2023 take 1 tablet by [facility] once daily in the evening Singulair 10 mg Tab 10 mg = 1 tab(s), Oral, qPM, # 90 tab(s), Refills(s) 1, [id number], 176, cm, 02/26/23 15:01:00 EDT, Height/Length Dosing, 143.7, kg, 02/26/23 15:01:00 EDT, Weight Dosing Start Date: 02/26/23 Status: Ordered Start: 11-18-2021 take 1 tablet by [facility] once daily montelukast (SINGULAIR) 10 MG tablet [...] day(s), # 21 tab(s), Refills(s) 0, Pharmacy: [facility]/pharmacy #[id number], 176, cm, 12/17/23 13:27:00 EDT, Height/Length Dosing, 147.2, kg, 12/17/23 13:27:00 EDT, Weight Dosing Start Date: 12/17/23 Stop Date: 12/24/23 Status: Ordered sildenafil 25 mg oral tablet (11 sources) Phosphodiesterase 5 Inhibitor Start: 10-25-2021 take 1 tablet by mouth once daily as needed Viagra 25 mg Tab 25 mg = 1 tab(s), Oral, Daily, PRN for erectile dysfunction, # 6 tab(s), Refills(s) 0, Pharmacy: [facility], 175, cm, 10/25/21 7:04:00 [...] Albuterol (Eqv-ProAir HFA) 90 mcg/inh inhalation aerosol (9 sources) Start: 02-26-2023 take 1 dose by inhalation every six hours Albuterol (Eqv-ProAir HFA) 90 mcg/inh inhalation aerosol 2 puff(s), Inhalation, q6hr, 1 EA, Refill(s) 2, [facility]/pharmacy #[id number], 176, cm, 02/26/23 15:01:00 EDT, Height/Length [...] 75 mL Nebulizer Tubing and Mouthpiece Kit (11 sources) Start: 12-17-2023 Nebulizer Tubing and Mouthpiece Kit Nebulizer Tubing and Mouthpiece Kit, See Instructions, 1 kit(s), 0, Nebulizer Tubing and Mouthpiece Kit, [facility]/pharmacy #[id number], Supply, 176, cm, 12/17/23 13:27:00 EDT, Height/Length Dosing, 147.2, kg, 12/17/23 13:27:00 EDT, Weight Dosing Start Date: 12/17/23 Status: Ordered Start: 11-07-2021 Nebulizer Tubi ng and Mouthpiece Kit Nebulizer Tubing and Mouthpiece Kit, See Instructions, 1 kit(s), 0, Nebulizer Tubing and Mouthpiece Kit, [id number], Supply, 175, cm, 11/07/21 7:11:00 EDT, [...] breath or wheezing, 1 EA, Refill(s) 0, [id number], 175, cm, 11/07/21 7:11:00 EDT, Height/Length Dosing, 148, kg, 11/07/21 7:11:00 EDT, Weight Dosing Start Date: 01/31/22 Status: Ordered Problems Active Problems Problem Classification Problem Date Documented Da te Episodic/Chronic Abdominal hernia (12 sources) Hernia of anterior abdominal wall; Translations: [Ventral hernia without obstruction or gangrene] Onset: 03-02-2022 Episodic Abdominal pain (2 sources) Generalized abdominal pain; Translations: [Generalized abdominal pain] Onset: 09-07-2022 Episodic Asthma (12 sources) Moderate asthma; Translations: [Exacerbation of asthma] [...] vehicle (finding)] Onset: 08-15-2023 Episodic Essential hypertension (14 sources) Hypertensive disorder; Translations: [Essential hypertension] Onset: 02-25-2023 06-14-2021 Chronic Fluid and electrolyte disorders (11 sources) Hypokalemia 03-06-2011 Episodic Lymphadenitis (1 source) [...] Onset: 09-07-2022 Episodic Other male genital disorders (13 sources) Impotence; Translations: [Male erectile dysfunction, unspecified] Onset: 02-25-2023 10-25-2021 Chronic Other male genital disorders (7 sources) Disorder of male genital organ; Translations: [Other specified disorders of the male genital organs] Onset: 09-02-2023 Episodic Other male genital disorders (3 sources) Hydrocele of testis; Translations: [Hydrocele, unspecified] Onset: 09-03-2023 Episodic Other male genital disorders (4 sources) Swelling of testicle 09-02-2023 Episodic Other male genital disorders (4 sources) Cyst of epididymis; Translations: [Cyst of epididymis] Onset: 12-31-2023 Episodic Other non-traumatic joint disorders (11 sources) Ankle instability 11-07-2013 Episodic Comment on above: left Other non-traumatic joint disorders (1 source) Pain of right wrist; Translations: [Pain in right wrist] Onset: 08-15-2023 Episodic Other nutritional; endocrine; and metabolic disorders (8 sources) Obesity; Translations: [Obesity, unspecified] Onset: 03-17-2022 Chronic Other nutritional; endocrine; and metabolic disorders (17 sources) Body mass index 40+ - severely obese; Translations: [Body mass index (BMI) 45.0-49.9, adult] Onset: 03-02-2022 Chronic Other nutritional; endocrine; and metabolic disorders (16 sources) Morbid obesity; Translations: [Morbid (severe) obesity due to excess calories] Onset: 03-02-2022 Chronic Residual codes; unclassified (14 sources) Obstructive sleep apnea syndrome; Translations: [Obstructive sleep apnea (adult) (pediatric)] Onset: 02-25-2023 01-11-2021 Chronic Residual codes; unclassified (2 sources) Dependence on enabling machine or device; Translations: [Dependence on other enabling machines and devices] Onset: 02-25-2023 Chronic Residual codes; unclassified (11 sources) Family history of diabetes mellitus 12-20-2020 Episodic Respiratory failure; insufficiency; arrest (adult) (11 sources) 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 06-14-2021 Chronic Unclassified (2 sources) epislepsy( Confirmed ) 09-04-2013 Unclassified (7 sources) History of SARS-CoV-2 07-07-2021 Unclassified (9 sources) epislepsy 09-04-2013 Past or Other Problems Problem Classification Problem Date Documented Da te Episodic/Chronic Unclassified (2 sources) chronic edema to feet( Confirmed ) 11-09-2012 Unclassified (9 sources) chronic edema to feet 11-09-2012 Results Test Name Value Interpretation Reference Range Facility Ambulatory Visit Summaryon 0 03-14-2024 Ambulatory Visit Summary Ambulatory Visit Summary DAVE MALIKLESLIETULIO Marlen :1980 Visit Date:03/14/2024 Ambulatory Visit Instructions Your Diagnosis Bilateral hydrocele Epididymal cyst Your Care Team Attending Physician - ELIESER VERMA, Cayetano Shelby Primary Care Physician - Nayely Souza PA-C [...] and longus tendon (09/04/2013), bilateral knee surgeries, Hydrocelectomy, rt little finger surgery. Discharge Vitals Heart Rate (Peripheral) 68 Respiratory Rate 16 Blood Pressure 136/83 Height 176 cm Height 69 in Weight 147 kg Weight 323.4 lb BMI 47.46 What to do next Scheduled Follow-Up Appointments Sunday 10:15 AM EDT With: ELIESER VERMA, Cayetano Shelby Where: [facility] Provider Letteron 03-14-2024 Provider Letter Provider Letter March 14, 2024 TULIO ACOSTA [address] [place] [address] : 1980 To Whom It May Concern, Please excuse above patient from work. 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 He is not to lift over 10 lbs, no driving tow motor, roman or semi truck. He is cleared for desk work for 4 weeks. He may resume normal activity after 04/12/24. Restrictions: Light duty Comments: Patient may resume normal activity on 04/12/2024. Sincerely, [facility] M.D., F.A.C.S. [facility] [address] [place], [place] [address] Normal [facility] Urology Office/Clinic Noteon 03-14-2024 Urology Office/Clinic Note Urology Office/Clinic Note Chief Complaint S?P Rt Hydrocelectomy HPI Staff F/u to hydrocelectomy, rev path. S/p R hydrocelectomy 02/21/24 - Benign hydrocele. Previous Dx: bilateral hydrocele, epididymal cyst. No maintenance urologic meds from this office. Pt called our office 03/12 c/o opening in the middle of his hydrocele incision about the size of a pencil eraser. He states he has mild, sticky drainage in that area. Looks like it will scab over. Opening still there. Rt side is still a little sore. Has some drainage. Incision in general looks good History of Present Illness Tests reviewed: reviewed UA and path. I have reviewed the previous health record information and history for this patient from Dr. Mon. I have reviewed and verified the staff HPI to be accurate for this encounter. There have been no associated fever, chills, flank pain, or blood in the urine. Denies any urinary infections since last encounter. Review of Systems PHQ Score Initial [...] HPI. Physical Exam Vitals & Measurements HR: 68(Peripheral) RR: 16 BP: 136/83 HT: 69 in HT: 176 cm WT: 147 kg WT: 323.4 lb BMI: 47.46 General Appearance: alert, no distress, well nourished, well developed male. Genitourinary: no signs of infection. small mid incision suture line Opening is present. draining scant clear fluid. Assessment/Plan CT AP w/ con 08/15/23 - kidneys, ureters, and bladder wnl. 1. Bilateral hydrocele (N43.3: Hydrocele, unspecified) Scrotal [place]04[place] [facility] [place] bilateral hydroceles. Currently, he has a large R and small L hydrocele. Pt's partner reports right hydrocele has increased in size over the years, used to be about the size of his testicle. S/p R hydrocelectomy 02/21/24. Pt called our office 03/12/24 c/o opening in the middle of his hydrocele incision, about the size of a pencil eraser. He states he has mild, sticky drainage in that area. Opening still there. Rt side is still a little sore. Has some drainage. Denies pain. Path large benign hydrocele with moderately associated congestion, otherwise without secondary infection or any other significant finding. Results reviewed with pt. UA today neg. PE: no signs of infection. Opening is present. -Cont to avoid strenuous activity -Call with changes, abnormal discharge -Follow up in 1 mos 2. Epididymal cyst (N50.3: Cyst of epididymis) Scrotal [place] [facility] [place] L epididymal cyst measuring 1.6 x 1.5 x 1.3 cm. Follow-up With When Contact Information ELIESER VERMA, Cayetano Shelby, [address] [place] [address]- Additional Instructions: 1 mos Patient Education Hydrocele, Adult I, Jade Man, personally scribed for Dr. Mon on 03/14/2024 10:15:38. . Documentation recorded by the scribe, Jade Man, accurately reflects the services(s) I performed and decisions made by me. Authenticated by Dr. Mon on 03/14/2024 10:24:17. Problem List/Past Medical History Ongoing Ankle instability [...] and longus tendon (09/04/2013), bilateral knee surgeries, Hydrocelectomy, rt little finger surgery. 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 Normal [facility] Comment on above: Result Comment: Elec tronically Signed By: Cayetano MON MD\.br\Date and Time Signed: 03/14/24 10:24 EDT\.br\Electronically Co-Signed By: Jade Man.br\Date and Time Co-Signed: 03/14/24 10:16 EDT\.br\Electronically Co-Signed By: Magda, Jade B\.br\Date and Time Co-Signed: 03/14/24 10:17 EDT Provider Letteron 03-06-2024 Provider Letter Provider Letter March 06, 2024 T[address]IO [address]COSTA [address] [place] [id number] : 1980 To Whom It May Concern, Please excuse above patient from work. Date of Illness: From: 02/21/24 To: 03/06/24 May Return to Work On:03/07/24 Restrictions: Patient may return to work 03/07/24 on light duty. No heavy lifting over 10 pounds, no operating a tow motor, semi, or roman, or standing for extended periods at this time until 03/20/24. Comments: Restrictions are lifted on 03/20/24 to resume normal activity. Sincerely, [facility] ALYSE Harrison/ Dr. Cayetano Mon [facility] Geoff 02-21-2024 L Specimen: [id number] Received: 02/22/24 [facility] Num: [id number] Spec Type: Surgical Subm Dr: Cayetano Mon MD Tissues: A Hydrocele Sac (RT HYDROCELE SAC) Procedures: HE, Gross/Micro L2 Age/ Patient Sex Location Account Attending Physician Tulio Acosta 43/M LABELL [id number] Cayetano Mon MD SPEC NUM: [id number] RECD: 02/22/24 STATUS: [facility] NUM: [id number] GALO: 02/21/[address]: Cayetano Mon MD ENTERED: 02/22/[address] [facility] [address]: Clarisa Ortiz SPEC TYPE: Surgical DEPT: EUN DESAI ORDERED: HE, Gross/Micro L2 ORDERED: HE, Gross/Micro L2 Pathological Diagnosis Right hydrocele sac, hydrocelectomy: -Large benign hydrocele sac with moderately associated congestion, otherwise without secondary infection or any other significant finding Clinical Information Right hydrocele Gross Description Received in formalin labeled with the patient's name, date of and right hydrocele sac are 2 viera-pink, rubbery and saccular membranous tissue fragments measuring in aggregate 6.3 x 2.6 x 0.5 cm. Cut sections reveal an unremarkable, smooth inner lining with no areas of abnormality identified. Automatic Hemmer sections are submitted in A1. TW CPT Codes 66793 Specimen: [id number] Received: 02/22/24 Status: [facility] Num: [id number] Spec Type: Surgical Subm Dr: Cayetano Mon MD Tissues: A Hydrocele Sac (RT HYDROCELE SAC) Procedures: Gt CHENG/Renate L2 Patient: Tulio Acosta JR [id number] (Continued) Signed (signature on file) Alvaro Gonzalez MD 02/25/242026 Normal [facility] Lab Reportson 02-12-2024 Lab Reports [id number] #1.00TIFF Normal [facility] Lab Reportson 02-11-2024 Lab Reports [id number] #1.00TIFF Normal [facility] Lab Reportson 02-07-2024 Lab Reports [id number] #1.00TIFF Normal [facility] Consent for Procedure/Surger yon 01-14-2024 Consent for Procedure/Surgery [id number] #1.00TIFF Normal [facility] Patient Letter FTon 2023 Patient [place] [facility] [place] 08, 2024 TULIO ACOSTA [address] [place] [phone] : 1980 Dear Mr. Tulio Acosta, We have been trying to reach you. Dr. Mon needs to reschedule your procedure on 02/12/24. Please call the office so we can coordinate another date. Thank you for your cooperation in this matter. Sincerely, Patricia Dia RN, Chronic intensive care specialist , option #3 Normal [facility] Consent for Procedure/Surger yon 01-01-2024 Consent for Procedure/Surgery [id number] #1.00TIFF [facility] Ambulatory Visit Summaryon 0 12-31-2023 Ambulatory Visit Summary TULIO ACOSTA JR :1980 Visit Date:12/31/2023 Ambulatory Visit Instructions Your Diagnosis Bilateral hydrocele Epididymal cyst Your Care Team Attending Physician - ELIESER VERMA, Cayetano Shelby Primary Care Physician - aHrley HOANG, Nayely E. Referring Physician - Jasmin MCKEON MD This [...] Follow-Up Appointments Sunday 9:15 AM EDT With: Cayetano MON MD Where: [facility] Patient Educationon 12-31-19 Patient Education Urology Hydrocelectomy, Adult, Care After [...] these instructions at home: Medicines ? Take dpet-ffs-piufmqg and prescription medicines only as told by your health care provider. ? Ask your health care provider if the medicine prescribed to you: ? Requires you to avoid driving or using machinery. ? Can cause constipation. You may need to take these actions to prevent or treat constipation: ? Drink enough fluid to keep your urine pale yellow. ? Take dmue-wao-uprsxkw or prescription medicines. ? Eat foods that [...] and water are not available, use hand furniture assembler and installer. ? Change your dressing as told by [...] says th (more content not included)... Normal [facility] Family Medicine Office/Clini c Noteon 12-19-2023 Family [...] is unable to follow up with an manager service desk due to financial limitations. He sustained a [...] with voice recognition artificial intelligence software, specifically [employer] and or [employer]. Substitutions may have occurred due to the inherent limitations of voice recognition and artificial intelligence software. ATTESTATION: This note has been generated by Valeriano DANIELLE and edited by Jabier Knutson, [employer]. Follow-up (more content not included)... Normal [facility] Comment on above: Result Comment: Elec tronically Signed By: Harley HOANG, Nayeyl Mohan\.br\Date and Time Signed: 12/19/23 21:32 EDT\.br\Electronically Co-Signed [...] Souza PA-C This Is Your Medications List [facility] Prescription (Nebulizer Tubing and Mouthpiece Kit) albuterol [...] VERMA, Cayetano Shelby Where: [facility] Patient Educationon 12-17-19 24 Patient Education Cardiovascular Managing Your Hypertension Hypertension, [...] blood pr (more content not included)... Normal [facility] Registrationon 10-10-2023 Registration [id number] #1.00TIFF [facility] Registrationon 10-04-2023 Registration [id number] 2#1.00TIFF [facility] Physician Referralon 024 Physician Referral [id number] 3#1.00TIFF [facility] US Scrotum (Contents)on 08-27 US Scrotum (Contents) [...] Fry MD Transcribed by: FABIOLA Technologist: TONIA [facility] Consent for Treatmenton Consent for Treatment [id number] #1.00TIFF [facility] Family Medicine Office/Clini c Noteon 09-03-2023 Family [...] help. He denies constipation. 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 He does [...] with voice recognition artificial intelligence software, specifically [employer] and or [employer]. Substitutions may have occurred due to the inherent limitations of voice recognition and artificial intelligence software. Follow-up With Whe (more content not included)... Normal [facility] Comment on above: Result Comment: Elec tronically [...] these instructions at home: Medicines ? Take hshc-bjn-desofgc and prescription medicines only as told by [...] provider. Document Revised: 03/30/2022 Document Reviewed: 03/30/2022 [employer] Patient Education ? 2022 [employer]. Scrotal Swelling Scrotal swelling is a condition [...] medical conditions, (more content not included)... Normal [facility] ABO/Rhon 08-15-2023 ABO/Rh Positive Invalid Interpretation Code [facility] Comment on above: Performed By: #### 1 [id number], [id number], [id number] ####[facility] [id number] [place] [address] ABO/Rh History Checkon 08-15 ABO/Rh History Check Patient discharged prior Normal [facility] Comment on above: Performed By: #### 1 [id number], [id number], [id number], [id number] ####[id number] [place] [address] ABSCon 08-15-2023 ABSC Gel Interp Negative Normal [facility] Comment on above: Performed By: #### 1 [id number], [id number], [id number], [id number] ####[facility] [id number] [place] [address] Auto Diffon 08-15-2023 Basophils/100 WBC (Bld) 1.2 % Normal 0.0-2.0 [facility] Comment on above: Order Comment: Order Added by Discern Expert. Performed By: #### 2 [id number], [id number], [id number], [id number], [id number], [id number] #### [facility] [address] [place] [address] Basophils/Leukocytes Auto (Bld) [Pure # fraction] 0.1 E9/L Normal 0.0-0.2 [facility] Comment on above: Order Comment: Order Added by Discern Expert. Performed By: #### 2 [id number], [id number], [id number], [id number], [id number], [id number], [id number], [id number], [id number] #### [facility] [address] [place] [address] Eosinophils/100 WBC (Bld) 2.9 % Normal 0.0-8.0 [facility] Comment on above: Order Comment: Order Added by Discern Expert. Performed By: #### 2 580126, 91163980, 7187001, 9159485, 7856827, 2511835, 8294925, 88148854, 3609177 #### [facility] [address] [place] [address] Eosinophils/Leukocyte s Auto (Bld) [Pure # fraction] 0.1 E9/L Normal 0.0-0.5 [facility] Comment on above: Order Comment: Order Added by Discern Expert. Performed By: #### 2 605270, 58734362, 3765642, 8424996, 6859170, 1390874, 9361602, 16381193, 3415698 #### [facility] [address] [place] [address] 39973 Lymphocytes/100 WBC (Bld) 26.5 % Normal 14.0-50.0 [facility] Comment on above: Order Comment: Order Added by Discern Expert. Performed By: #### 2 613953, 53902072, 7100410, 6028435, 5950922, 4813321, 0179186, 47017549, 4410416 #### [facility] [address] [place] [address] 72485 Lymphocytes/Leukocyte s Auto (Bld) [Pure # fraction] 1.2 E9/L Normal 1.0-4.0 [facility] Comment on above: Order Comment: Order Added by Discern Expert. Performed By: #### 2 466837, 43573031, 0566071, 8416155, 9847999, 5565141, 0673837, 80869086, 3055219 #### [facility] [address] [place] [address] 41089 Monocytes/100 WBC (Bld) 10.5 % Normal 4.0-14.0 [facility] Comment on above: Order Comment: Order Added by Discern Expert. Performed By: #### 2 752632,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 Follow Up Care 02/28/2022 14:29:24 With:Karolina Blakely Address: [email or web address] When: only if needed [facility] Evaluation + Plan note Future Appointments Appointment Date:03/17/2022 03:00:00 PM Scheduled Provider:Sal Klein MD Location:[facility] Appointment Type:[address] Evaluation + Plan note Future Appointments Appointment Date:09/04/2023 03:00:00 PM Scheduled Provider: [facility] Appoint[facility] Type:US Prostate/Scrotum (FT) Future Scheduled Tests Laboratory* Calprotectin, Fecal 07/13/23 * Fecal WBC Lactoferrin 07/13/23 * O & P Exam, Routine 07/13/23 * Enteric Panel by PCR 07/13/23 Radiology* US Scrotum (Contents) 09/04/23 [facility] Evaluation + Plan note Future Appointments Appointment Date:12/31/2023 12:00:00 PM Scheduled Provider:Cayetano MON MD Location[facility] Appointment Type:URO New Patient Future Scheduled Tests Laboratory* Calprotectin, Fecal 07/13/23 * Fecal WBC Lactoferrin 07/13/23 * O & P Exam, Routine 07/13/23 * Enteric Panel by PCR 07/13/23 [facility] Evaluation + Plan note Future Appointments Appointment Date:03/14/2024 09:15:00 AM Scheduled Provider:Cayetano MON MD Location:[facility] Appointment Type:URO Office Visit Future Scheduled Tests Laboratory* Calprotectin, Fecal 07/13/23 * Fecal WBC Lactoferrin 07/13/23 * O & P Exam, Routine 07/13/23 * Enteric Panel by PCR 07/13/23 [facility] evaluation + Plan note Future Appointments Appointment Date:04/11/2024 10:15:00 AM Scheduled Provider:Cayetano MON MD Location:[facility] Appointment Type:URO Office Visit Appointment Date:04/21/2024 09:00:00 AM Scheduled Provider:Gena PIMENTLE CNP [facility]ational Health Appointment Type:IH DOT Physicals (FT) Future Scheduled Tests Laboratory* Calprotectin, Fecal 07/13/23 * Fecal WBC Lactoferrin 07/13/23 * O & P Exam, Routine 07/13/23 * Enteric Panel by PCR 07/13/23 [facility] evaluation note* Diagnosis Nausea and vomiting, unspecified vomiting type- Primary Diarrhea, unspecified type Generalized abdominal pain Abdominal pain, generalized documented in this encounter [facility] Work Phone: Hospital course Narrative No data available for this section [facility] Hospital Discharge instructions* Attachments The following attachments cannot be sent through Care Everywhere. * Abdominal Pain (Peruvian) * Diarrhea (Peruvian) documented in this encounterBON [facility] Phone: Hospital Discharge instructions No data available for this section [facility] note No data available for this section [facility] [place] Summary Purpose Family History No Family History Records FoundNo Family History Records Found No data available for this section No data available for this section No data available for this section No data available for this section No data available for this section No data available for this section No Family History Records Found No data available for this section No Family History Records Found Advance Directives No Advanced Directives Records FoundDocuments on File Type Date Recorded Patient Automatic Hemmer Expl anation Advance Directives and Livin g Will 03/27/2020 4:01 AM Discharge Instructions * Instructions* Mame Galeano MD - 03/27/2020 Follow up with your personal primary care physician or physician specialist or if you do not have apersonal physician, access the internet and utilize the Open English Website www.ActionRun under the Find a Doctor https://www.ActionRun/sczu-g-vxhgfq/ or alternatively the Met[employer]omx Website www.Atamasoft under the Search for a Physician section http://www.Atamasoft/yese-h-kbwsfbwt/ and arrange for an appointment. If you [...] sent through Care Everywhere. * Abdominal Pain (Peruvian) documented in this encounter Assessments Diagnosis Splenomegaly Lymphadenopathy, abdominal Obesity, unspecified classification, unspecified obesity type, unspecified whether serious comorbidity present Cyst of left kidney Unspecified congenital cystic kidney disease Elevated blood pressure reading Elevated blood pressure reading without diagnosis of hypertension Additional Source Comments (unrecognized sect ion and content) No Status Records FoundNo Status Records FoundNo Status Records FoundNo Status Records Found INFORMATION SOURCE (unrecogn ized section and content) DATE CREATED AUTHOR 03/27/2020 [facility] DATE CREATED AUTHOR AUTHOR'S ORGANIZ ATION 09/10/2022 Tesha schuler DATE CREATED AUTHOR AUTHOR'S ORGANIZ ATION 02/26/2024 [facility] DATE CREATED AUTHOR AUTHOR'S ORGANIZ ATION 03/15/2024 [facility] Reason for Visit (unrecogniz ed section and content) Reason Comments Abdominal Pain Reason Comments Abdominal Pain Left sided abd pain for the last three days Mame Galeano MD - 03/27/2020 6:16 AM Bonnie Mcgee RN - 03/27/2020 3:26 AM EDT ED Notes (unrecognized secti on and content) [facility] EM[facility]Y [facility] ATTENDING NOTE: NAME: Tulio Acosta 39 y.o. CSN: [id number] PCP: Physician No History: Chief Complaint: Abdominal [...] file Gets together: Not on file Attends buddhist service: Not on file Active member of [...] for the following components: Result Value Specific Rufus 1.046 (*) All other components within normal [...] Procedure Abnormality Status --------- ------ CBC Auto Differential[[id number]] Abnormal Final result Please view results for [...] 6 months' time might be of help. Geosophic/Tag'By Workstation ID: [id number] ED Course / Medical [...] condition. Mame Galeano MD ED Attending Physician [facility] EM[facility]ENCY [facility] (Please note that portions of [...] sect ion and content) Personnel Name: Samira MONTENEGRO CNP Address: [address] [place] [address] Personnel Name: Samira MONTENEGRO CNP Address: [address] [place] [address] [address] Personnel Name: Nayely Souza PA-C Address: Address: [address] [place] [address]- Personnel Name: Nayely Souza PA-C Address: Address: [address] [place] [address]- Personnel Name: Nayely Souza PA-C Address: Address: [address] [place] [address]- Personnel Name: Nayely Souza PA-C Address: Address: [address] [place] [address]- Personnel Name: Nayely Souza PA-C Address: Address: [address] [place] [address]- Personnel Name: Nayely Souza PA-C Address: Address: [address] [place] [address]- Personnel Name: Nayely Souza PA-C Address: Address: [address] [place] [address] Personnel Name: Nayely Souza PA-C Address: Address: [address] [place] [address] Personnel Name: Nayely Souza PA-C Address: Address: [address] [place] [address] Ordered Prescriptions (unrec ognized section and content) [...] BE BASED ON THE PRIMARY CLINICAL RECORDS. [facility] [employer] [facility]. provides no warranty or guarantee of the accuracy or completeness of information in this document.
--- NOTE | 2024-03-21 17:49 | ED.MALEGU1 ---
HPI - Male Genitourinary General Chief complaint: Urogenital-Male Stated complaint: Post Operative Complications Time Seen by Provider: 03/21/24 17:29 Source: patient Mode of arrival: walk-in Limitations: no limitations History of Present Illness HPI Narrative: Patient is a 43-year-old male presents to the ER with concerns of wound complication. Patient states he had a right hydrocelectomy on 02/[address] Chauhan. Has been going to postop follow-ups and working with restrictions. States he had a slight opening at the incision which worsened today. He denies any trauma or injury. Denies drainage fever or bleeding. He denies any trouble with urination. Patient notes that the hole has opened up slightly more than it was previously and did not want to let it go through the weekend. He has been wearing supportive scrotal supports. Patient not currently taking any antibiotics. Related Data Home Medications ?Medication ?Instructions ?Recorded ?Confirmed albuterol sulfate 90 mcg/actuation 2 inh inhalation Q6H 02/04/24 03/21/24 breath activated powder inhaler lisinopril 20 mg tablet 20 mg PO DAILY 02/04/24 03/21/24 montelukast 10 mg tablet 10 mg PO QPM 02/04/24 03/21/24 (Singulair) sildenafil 25 mg tablet (Viagra) 25 mg PO DAILY PRN sexual activity 02/04/24 03/21/24 Previous Rx's ?Medication ?Instructions ?Recorded sulfamethoxazole 800 1 tab PO Q12H 5 days #10 tabs 03/21/24 mg-trimethoprim 160 mg tablet (Bactrim DS) Allergies Allergy/AdvReac Type Severity Reaction Status Date / Time tetanus toxoid, adsorbed Allergy Severe Anaphylaxis Verified 02/04/24 15:36 budesonide [From Symbicort] AdvReac Severe thoat Verified 02/04/24 15:36 irritation formoterol [From Symbicort] AdvReac Severe thoat Verified 02/04/24 15:36 irritation Review of Systems ROS Constitutional Denies: fever or chills Eyes Denies: change in vision Ears, nose, mouth, and throat Denies: throat pain or neck pain Cardiovascular Denies: chest pain or palpitations Respiratory Denies: shortness of breath or cough Gastrointestinal Denies: abdominal pain, nausea or vomiting Genitourinary Denies: painful urination Musculoskeletal Denies: back pain or neck pain Integumentary/Breast Denies: rash, itching or skin swelling Neurological Denies: headache Psychiatric Denies: anxiety PFSH PFSH Medical History (Updated 03/21/24 @ 17:49 by ALYSE Estrada) Seizure ?R56.9 - Unspecified convulsions (ICD-10) Hypokalemia ?E87.6 - Hypokalemia (ICD-10) Chronic edema ?R60.9 - Edema, unspecified (ICD-10) Morbid obesity ?E66.01 - Morbid (severe) obesity due to excess calories (ICD-10) Hypertension ?I10 - Essential (primary) hypertension (ICD-10) Erectile dysfunction ?N52.9 - Male erectile dysfunction, unspecified (ICD-10) Ankle instability ?M25.373 - Other instability, unspecified ankle (ICD-10) Epididymal cyst ?N50.3 - Cyst of epididymis (ICD-10) Left hydrocele ?N43.3 - Hydrocele, unspecified (ICD-10) Sleep apnea ?G47.30 - Sleep apnea, unspecified (ICD-10) Asthma ?J45.909 - Unspecified asthma, uncomplicated (ICD-10) Hydrocele, right ?N43.3 - Hydrocele, unspecified (ICD-10) Surgical History (Updated 02/07/24 @ 09:24 by Caprice Oneill RN) Hx of tonsillectomy ?Z90.89 - Acquired absence of other organs (ICD-10) Hx of hand surgery ?Z98.890 - Other specified postprocedural states (ICD-10) History of ankle surgery ?Z98.890 - Other specified postprocedural states (ICD-10) H/O knee surgery ?Z98.890 - Other specified postprocedural states (ICD-10) Family History (Updated 02/07/24 @ 09:21 by Caprice Oneill, RICCI) Other Family history of COPD (chronic obstructive pulmonary disease) Family history of cancer Family history of diabetes mellitus Lupus Social History (Updated 02/07/24 @ 09:20 by Caprice Oneill, RN) Within the past year, how often did you have a drink containing alcohol: monthly or less Smoking status: Never smoker Second hand tobacco smoke exposure: No Non-prescribed substance use: denies use 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 General: The patient appears well and in no apparent distress. Patient is resting comfortably on cart. Skin: Warm, dry, no pallor noted. Head: Normocephalic, atraumatic Neck: Supple, trachea mid-line, no tenderness, no lymphadenopathy Eye: Pupils are equal, round and reactive to light, EOMI Cardiovascular: Regular Rate and Rhythm Respiratory: Patient is in no distress, no accessory muscle use, lungs are clear to auscultation, no wheezing, rales or rhonchi. Back: non-tender, no CVA tenderness Musculoskeletal: normal ROM, no tenderness, no swelling GI: no tenderness to palpation, no masses appreciated. No rebound, guarding, or rigidity noted. : Patient examined lying supine, prominent scrotum, no erythema. Denies tenderness, no penile drainage or lesions. Patient has a postsurgical incision approximately 4 cm to the right testicle transverse, the mid aspect of the incision is approximately Dehisced by 2 cm no active drainage or discharge. Margins approximate well without evidence of hypertrophy. No inguinal adenopathy. Neurological: A&O x4 Psychiatric: Cooperative Constitutional Vital Signs, click to edit/add: Last Vital Signs Temp 99.4 F 03/21/24 17:29 Pulse 85 03/21/24 17:29 Resp 20 03/21/24 17:29 BP 126/87 03/21/24 17:29 Pulse Ox 96 03/21/24 17:29 O2 Del Method Room Air 03/21/24 17:29 Course Vital Signs Vital signs: Vital Signs Temperature 99.4 F 03/21/24 17:29 Pulse Rate 85 03/21/24 17:29 Respiratory Rate 20 03/21/24 17:29 Blood Pressure 126/87 03/21/24 17:29 Pulse Oximetry 96 03/21/24 17:29 Oxygen Delivery Method Room Air 03/21/24 17:29 Temperature 99.4 F 03/21/24 17:29 Pulse Rate 85 03/21/24 17:29 Respiratory Rate 20 03/21/24 17:29 Blood Pressure 126/87 03/21/24 17:29 Pulse Oximetry 96 03/21/24 17:29 Oxygen Delivery Method Room Air 03/21/24 17:29 MDM - Male Genitourinary MDM Narrative Medical decision making narrative: Case discussed with Dr. Hernandez hernández urology. Patient has no difficulty with urination or increased testicle pain. Patient reports his job is sedentary with current restrictions. Recommends Bactrim twice a day for 5 days. Steri-Strips for approximation and for patient to contact his urologist. Patient will return to the ER if symptoms worsen or new symptoms develop. Steri-Strips were applied and patient will double up on his supportive boxer briefs for more scrotal support. The patient is to followup with Urology in next 2-3 days or to return to the emergency department should any of the signs or symptoms worsen or new symptoms develop. Patient had questions answered. The patient agrees with the following Diagnosis and Treatment plan and the patient will be discharged home. Discharge Plan Discharge Stand Alone Forms: Portal Instructions Chief Complaint: Urogenital-Male Clinical Impression: Postoperative wound dehiscence Patient Disposition: Home, Self-Care Time of Disposition Decision: 17:49 Condition: Good Prescriptions / Home Meds: New sulfamethoxazole-trimethoprim [Bactrim DS] 800-160 mg tablet 1 tab PO Q12H 5 Days Qty: 10 0RF No Action sildenafil [Viagra] 25 mg tablet 25 mg PO DAILY PRN (Reason: sexual activity) Rx Instructions: administer 30 minutes to 4 hours before activity montelukast [Singulair] 10 mg tablet 10 mg PO QPM albuterol sulfate 90 mcg/actuation aerosol powdr breath activated 2 inh inhalation Q6H lisinopril 20 mg tablet 20 mg PO DAILY Print Language: Sammarinese Instructions: Wound Dehiscence (ED) Additional Instructions: Contact your urologist on Sunday to discuss follow-up. Leave Steri-Strips in place. Return to the ER if symptoms worsen or new symptoms develop Referrals: Cayetano Chauhan MD [Physician] - As soon as possible
[2024-03-21 18:00] VITALS: BP 124/75; PULSE 76; O2SAT 100
== END 2024-03-21 18:01 | disposition home or self-care (01) ==
PROVIDERS: Emergency Provider Emergency Medicine
DX: T81.31XA Disruption of external operation (surgical) wound, not elsewhere classified, initial encounter (principal)
CPT/HCPCS: 99283